=== PATIENT | female | born 1930 | race Caucasian/White ===

== ENCOUNTER 2017-03-28 07:20 | Inpatient (IN) | payer MEDICARE, OTHER ==
[~2017-03-28] VITALS: Ht 154.9 cm; Wt 73.9 kg
[~2017-03-28 07:20] MED LIST: ASPIRIN EC81 MG PO; AUGMENTIN 875-1 EACH PO; FUROSEMIDE40 MG PO; HARVONI 90-4001 EACH PO; LISINOPRIL20 MG PO; POTASSIUM CHLO20 ME1 PO; TRAZODONE HCL50 MG PO; VITAMIN D-32000 UNIT PO
--- NOTE | 2017-03-28 19:32 | EKG ---
[facility] [address] [place] [address] Signed Sinus bradycardia with premature atrial complexes Otherwise normal ECG No previous ECGs available Confirmed by SANDRA ALEXANDER MD ([id number]) on 03/28/2017 7:31:55 PM Electronically Signed By: SANDRA ALEXANDER MD 03/28/17 193 PATIENT NAME: KASSANDRA AVALOS VIET Electrocardiogram DATE OF : 30 PHYSICIAN: SANDRA ALEXANDER MD REPORT #: [id number] REPORT IS CONFIDENTIAL AND NOT TO BE RELEASED WITHOUT AUTHORIZATION
--- NOTE | 2017-03-29 07:51 | OR ---
[facility] [address], [place] [address] Signed DATE OF OPERATION: 03/28/2017 SURGEON: Margarita Manning MD PREOPERATIVE DIAGNOSIS: Right intertrochanteric hip fracture. POSTOPERATIVE DIAGNOSIS: Right intertrochanteric hip fracture. PROCEDURE PERFORMED: Open reduction and internal fixation, right hip. OFFICE ASST: ZENA Messer was present in critical positioning, retraction, and wound closure. ANESTHESIA: Spinal. BLOOD LOSS: 200 mL. IMPLANTS: Synthes 4-hole 135 DHS with a 95 mm lag screw and four 4.5 mm screws. BRIEF HISTORY: Abida is an 87-year-old female, who suffered a ground-level fall this morning. She landed on her hip, had an extreme pain, and was transported by EMS to the emergency department. Radiographs revealed a nondisplaced intertrochanteric hip fracture. Risks and benefits of operative treatment were discussed with her and she elected to proceed. DESCRIPTION OF PROCEDURE: She was seen by the hospitalist and medically cleared prior to surgery and was taken to the operating room, placed on the fracture table. After adequate anesthesia, par conference was obtained and she was placed in foot traction. Her left leg was flexed abducted and external rotated carefully. Leadbetter maneuver was performed. Image intensifier was brought in. Fracture was found to be completely nondisplaced. The hip was prepped and draped in a standard sterile fashion. A 4-inch incision was made Electronically Signed By: MARGARITA MANNING MD 03/29/17 0751 PATIENT NAME: ABIDA AVALOS OPERATIVE REPORT DATE OF : 30 PHYSICIAN: MARGARITA MANNING MD REPORT #: [id number] REPORT IS CONFIDENTIAL AND NOT TO BE RELEASED WITHOUT AUTHORIZATION [facility] [address], [place] [address] Signed laterally and carried through the skin and subcutaneous tissue. The IT band was divided longitudinally. The vastus lateralis was split and elevated bluntly and the pin guide for the DHS was then centered on the lateral femur and the pin was advanced from the lateral femur across the femoral neck into the femoral head. This was measured to a 95. The triple reamer was then placed over the pin and advanced until it was well seated under direct image intensifier guidance. The 95 lag screw was then placed until it was well seated in the femoral head. The plate was then placed over this and advanced until it was flat with the lateral femur. The 4 holes were then drilled and 4 screws were placed. The final radiograph showed well placed DHS and an anatomically reduced fracture with the exception of the lesser trochanter which was off. The wound was copiously irrigated with antibiotic solution, closed with #1 Stratafix for the IT band, 0 Stratafix for the subcutaneous tissue, and uvaldo for the skin. Wound was dressed with Mepilex Ag dressing and Opsite. She tolerated the procedure well. All sponge, needle, and instrument counts were correct. Margarita Manning MD BA/ABELINO /[id number] Electronically Signed By: MARGARITA MANNING MD 03/29/17 0751 PATIENT NAME: ABIDA AVALOS VIET OPERATIVE REPORT DATE OF : 30 PHYSICIAN: MARGARITA MANNING MD REPORT #: [id number] REPORT IS CONFIDENTIAL AND NOT TO BE RELEASED WITHOUT AUTHORIZATION
== END 2017-03-31 08:30 | disposition swing bed (61) | DRG 482 ==
LOC: ED 07:20 → MS 09:24
PROVIDERS: ADMIT Specialist
PROC: 0QS604Z Reposition Right Upper Femur with Internal Fixation Device, Open Approach (ICD-10-PCS; principal; 2017-03-28 11:15)
DX: S72.144A Nondisplaced intertrochanteric fracture of right femur, initial encounter for closed fracture (principal); R34 Anuria and oliguria; I10 Essential (primary) hypertension; R00.1 Bradycardia, unspecified; B18.2 Chronic viral hepatitis C; F51.04 Psychophysiologic insomnia; W18.30XA Fall on same level, unspecified, initial encounter; Y92.009 Unspecified place in unspecified non-institutional (private) residence as the place of occurrence of the external cause; Z79.82 Long term (current) use of aspirin; Z79.899 Other long term (current) drug therapy; Z88.5 Allergy status to narcotic agent
CPT/HCPCS: 01210; 36415; 71045; 73502; 80048; 80076; 81001; 83880; 85025; 85610; 85730; 93005; 93010; 94762; 97110; 97116; 97162; 97165; 97530; 97535; C1713; J0690; J0780; J1885; J2250; J2274; J2370; J2405; J2704; J3010; J7120

== ENCOUNTER 2017-03-31 08:30 | Inpatient (IN) | payer MEDICARE, OTHER ==
[~2017-03-31] VITALS: Ht 154.9 cm; Wt 73.9 kg
--- NOTE | 2017-03-31 12:08 | NUR ---
PT DOING WELL. IN CHAIR AWAKE. TOOK LUNCH TRAY. TOOK TO THE BR. CHANGED BEDDING.
--- NOTE | 2017-03-31 13:40 | NUR ---
PT GOT A BED BATH, SHE WAS TAKING OFF THE TELE MARKERS, NAD ALSO WANTED TO TAKE OFF THE TAPE AND COTTON BALL FROM THE LAB WHEN SHE DID THAT IT CAUSED A SKIN TEAR, I NOTIFIED GINA(HER NURSE), AND SHE PUT A PROTECTANT OVER IT AND THEN WE FINISHED UP HER BED BATH, I REFILLED HER WATER AND SHE SAID SHE WAS GONNA RELAX TO TAKE A NAP.
--- NOTE | 2017-03-31 18:46 | NUR ---
PT CHANGED TO SWING BED. PT TOLERATING PHYSICAL THERAPY WELL, USES WALKER. NEEDS CUEING AND REMINDING FOR MOVEMENT. VOIDING WELL ON BCS. CHANGES POSITION OFTEN BETWEEN CHAIR AND BED. C/O PAIN ONLY WITH MOVEMENT.
--- NOTE | 2017-03-31 19:39 | NUR ---
ASSESSMENT COMPLETE. PT ASSISTED OFF THE COMMODE BACK TO BED WITH x2 ASSIST USING FWW. PT C/O PAIN 08/26, NORCO GIVEN. SCHEDULED HS TRAZADONE GIVEN PER PT REQUEST. DRESSING TO RIGHT HIP, C/D/I, SCANT SHADOWING NOTED. PT DENIES ANY NUMBNESS/TINGLING, CMS INTACT. PT ON ROOM AIR, DENIES ANY SOB. SCD/MASON/HP/CRYO CUFF IN PLACE. CALL LIGHT WITHIN REACH. PT DENIES ANY FURTHER NEEDS AT THIS TIME. PT HAD LG VOID AND BM IN BEDSIDE COMMODE.
--- NOTE | 2017-03-31 20:49 | NUR ---
VITALS AND I&OS DONE AND CHARTED. PT STATES SHE NEEDS NOTHING ELSE AT THIS TIME. HER TEMP WAS 100.0 I LET HER RN JEY KNOW. HER BEDSIDE TABLE AND CALL LIGHT WITHIN REACH.
--- NOTE | 2017-03-31 21:59 | NUR ---
HELPED RN GET PT TO THE BEDSIDE COMMODE AND BACK TO BED WITH HER WALKER. GOT HER SCDS AND HEEL PROTECTORS PUT BACK ON. CRYO CUFF ON WELL. 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 GLASSES PUT AWAY IN HER CASE. LOWERED THE HEAD OF HER BED AND TURNED OUT HER LIGHT. PT NEEDS NOTHING MORE AT THIS TIME. CALL LIGHT AND BEDSIDE TABLE WITHIN REACH.
--- NOTE | 2017-03-31 22:16 | NUR ---
REASSESSED PT TEMP, NOW 98.4. PT STATES RIGHT LEG STILL "ACHES", STABILIZED RIGHT FOOT WITH ROLLED BLANKET FOR PROPER ALIGNMENT D/T FALLING OUTWARD SHE STATES IT CAUSES HER FOOT TO ACHE WORSE. STABILIZING WITH BLANKET, PT STATES IT HELPS WITH THE PAIN. CRYO CUFF REFILLED AND IN PLACE. PT DENIES ANY FURTHER NEEDS AT THIS TIME. CALL LIGHT WITHIN REACH.
--- NOTE | 2017-04-01 00:41 | NUR ---
PT C/O PAIN 6-09/25, 2 TABS NORCO GIVEN. REPOSITIONED PT IN BED. PILLOW LAID UP AGAINST LATERAL RIGHT LOWER EXTREMITY TO ASSIST IN PROPER ALIGNMENT. ICE PACK APPLIED TO RIGHT LOWER EXTREMITY. DRESSING TO RIGHT HIP CONTINUES TO BE UNCHANGED, C/D/I WITH SCANT OLD SHADOWING NOTED. CRYO CUFF/TEDS/SCD/HP IN PLACE. CALL LIGHT WITHIN REACH. PT DENIES ANY FURTHER NEEDS AT THIS TIME.
--- NOTE | 2017-04-01 02:15 | NUR ---
PT SLEEPING, RR EVEN AND UNLABORED. PT APPEARS COMFORTABLE AT THIS TIME. CALL LIGHT WITHIN REACH.
--- NOTE | 2017-04-01 04:19 | NUR ---
HELPED PT GO TO THE BEDSIDE COMMODE WITH RN PONCHO'S HELP. CHARTED OUTPUT. GOT HER BACK INTO BED, SCDS PUT BACK ON,CRYO CUFF ON AND HEEL PROTECTORS. PT NEEDS NOTHING ELSE AT THIS TIME. CALL LIGHT AND BEDSIDE TABLE WITHIN REACH.
--- NOTE | 2017-04-01 06:07 | NUR ---
HELPED PT TO THE BEDSIDE COMMODE WITH LORE KHANNA.
--- NOTE | 2017-04-01 06:34 | NUR ---
PT UP IN CHAIR. PT RATES PAIN 2-3/10, 2 TABS NORCO GIVEN. IV SALINE LOCKED. DRESSING UNCHANGED, C/D/I WITH SCANT AMOUNT OF SHADOWING NOTED. PT IN GOOD SPIRITS THIS AM. PT DENIES ANY FURTHER NEEDS AT THIS TIME. CALL LIGHT WITHIN REACH.
--- NOTE | 2017-04-01 07:35 | NUR ---
RECIEVED REPORT FROM LORE DAVEY. PT UP TO CHAIR, AWAKE AND ALERT. REPORTS GETTING UP TO USE BATHROOM MULTIPLE TIMES. REPORTS PAIN IN LOWER RIGHT LEG, RELIEVED BY ICE PACK AND PILLOW STABLEAZTION. NEEDS CUEING FOR TRANSFER TO CHAIR OR BSC.
--- NOTE | 2017-04-01 08:01 | NUR ---
PT WAS UP IN HER CHAIR EATING HER BREAKFAST, SHE REMEMERED ME FROM YESTERDAY, SHE SAID SHE WOULD CALL IF SHE NEEDED ANYTHING.
--- NOTE | 2017-04-01 11:55 | NUR ---
CALLED DR GE REGARDING SWOLLEN RIGHT KNEE BEING NOTABLY MORE SWOLLEN. PT REPORTS INCREASED PAIN AND "TIGHTNESS" IN KNEE. RN ADVISED DR GE WE ARE APPLYING ICE TO AREA. DR GE GAVE NEW TELEPHONE ORDERS OF DICLOFENAC 75MG BID AND 2 VIEW X-RAY OF RIGHT KNEE TO R/O FX FROM FALL. ORDERS READ BACK AND CONFIRMED.
--- NOTE | 2017-04-01 12:21 | NUR ---
pt is in bed, her knee is a bit swollen, nurse was notified and called she said she wasnt hungry for lunch.
--- NOTE | 2017-04-01 17:59 | NUR ---
PT REPORTED PAIN IN RIGHT KNEE, KNEE APPEARS MORE SWOLLEN AND FEELS "TIGHT". DR GE AWARE, ORDERED 2 VIEW X-RAY OF KNEE, NO FRACTURE. ALSO ADDED NSAID TO MAR. ICE PACKS APPLIED TO KNEE. PT REQUIRES CUING AND REMINDERS FOR TRANSFERS, TTWB ON RIGHT FOOT. LULA, MASON MURGUIA, CYRO CUFF IN PLACE.
--- NOTE | 2017-04-01 19:26 | NUR ---
OFF-GOING HOSPITALIST ADVISED THAT HOSPITALIST WAS CONSULTING WHILE PT WAS INPATIENT. ADVISED TO LET HOSPITALIST KNOW IF BP WENT ABOVE 140/80. BP WAS 153/63. ADVISED HOSPITALIST. TELEPHONE ORDER TO RESTART HOME LISINOPRIL 20ML/DAY TO START TONIGHT.
--- NOTE | 2017-04-01 19:30 | NUR ---
BEDSIDE REPORT RECEIVED FROM LORE FUENTES, PT LYING IN BED, RATES PAIN 3/10 IN RIGHT HIP. CRYO CUFF ON, ICE PACKS ON RIGHT KNEE, SIGNIFICANT SWELLING NOTED WHEN ASSESSED BILATERALLY. DRESSINGS ON RIGHT HIP CLEAN, DRY AND INTACT. PT HAS NO ADDITIONAL NEEDS, SCDS AND HEEL PROTECTORS ON. WILL CONTINUE TO MONITOR. CALL LIGHT IN REACH.
--- NOTE | 2017-04-01 21:25 | NUR ---
PT SITTING UP IN CHAIR, RATES PAIN AT REST 3/10 IN RIGHT HIP, STATES MORE PAIN WITH MOVEMENT, LORE CORRAL ADMINISTERED 1 PO PRN NORCO FOR PAIN. LORE HARDEN NOTED LARGE BRUISE POSTERIORLY ON RIGHT LEG, WRAPPING TO INNER THIGH. PLAN TO ASSESS AFTER PAIN MEDICATIONS IN EFFECT. PT HAS CRYO CUFF ON. PERSONAL BELONGINGS, WATER, CALL LIGHT IN REACH.
--- NOTE | 2017-04-01 21:41 | NUR ---
PATIENT ASSISTED TO THE [facility] [place] 2PA. PATIENT TOLERATES ACTIVITY WELL. IT WAS NOTICE THAT THE PATIENT HAS A LARGE BRUISE THAT RUNS FROM THE PATIENTS RIGHT INNER THIGH TO THE OUTSIDE OF HER THIGH. THE BRUISE ALSO RUNS FROM THE BACK OF HER KNEE UP TO THE BOTTOM OF HER BUTTOCK. THE BRUISE IS NOT WARM TO THE TOUCH. PATIENT DOES NOT COMPLAIN OF PAIN AT THE SITE OF THE BRUISE. PLACED CALL TO DR. GE WITH CONCERN OF THE BRUISE. NO NEW ORDERS AT THIS TIME. WILL CONTINUES TO MONITOR.
--- NOTE | 2017-04-01 21:44 | NUR ---
VITALS AND I&OS DONE AND CHARTED. PT IS SITTING IN HER CHAIR AND NEEDS NOTHING ELSE AT THIS TIME. BEDSIDE TABLE AND CALL LIGHT NEXT TO HER.
--- NOTE | 2017-04-01 23:15 | NUR ---
ASSISTED PT FROM BEDSIDE COMMODE TO BED. PT TOLERATED TRANSFER WELL WITH TWO PERSON ASSIST AND FWW. ASSESSMENT COMPLETE. PT HAS LARGE BRUISE IN BACK OF RIGHT UPPER LEG THAT WRAPS AROUND LEG. CSM INTACT BILATERALLY UPPER AND LOWER EXTREMITIES. SIGNIFICANT EDEMA NOTED IN RIGHT KNEE, ICE PACKS APPLIED. CRYO CUFF ON RIGHT HIP, SITE CLEAN DRY AND INTACT WITH SHADOWING OF SMALL AMOUNT OF DRY DRAINAGE ON MEPILEX. PT RATES PAIN 3/10 AT THIS TIME, PAIN REPORTED TOLERABLE. PTS LUNGS CLEAR THROUGHOUT ALL LOBES. PT IS ALERT AND ORIENTED X 3. DENIES NAUSEA. LIGHTS OFF IN ROOM, SCDS ON, HEEL PROTECTORS ON. CALL LIGHT IN REACH.
--- NOTE | 2017-04-01 23:37 | NUR ---
PT REPORTED HEEL PROTECTERS WERE TOO TIGHT. LEFT HEEL PROTECTORS IN PLACE BUT UNSTRAPPED THEM.
--- NOTE | 2017-04-02 00:21 | NUR ---
ANSWERED PT'S CALL LIGHT, PT COMPLAINING OF PAIN IN RIGHT LEG, FROM THIGH DOWN. ASSESSED LEG, PULSES EQUAL BILATERALLY DORSALIS PEDIS, FAINT, BOTH LEGS WARM, NO EXCESSIVE WARMTH NOTICED IN RIGHT LEG AT BRUISING. SENSATION INTACT BILATERALLY. ADMINISTERED PRN NORCO X 1 FOR PAIN, WILL CONTINUE TO MONITOR, PT HAS SCDS ON, CRYO CUFF, TWO ICE PACKS ON RIGHT KNEE, SWELLING ON RIGHT KNEE HAS IMPROVED. HEEL PROTECTORS ALSO IN PLACE. CALL LIGHT IN REACH, LIGHTS OFF IN ROOM.
--- NOTE | 2017-04-02 01:30 | NUR ---
ANSWERED CALL LIGHT, ASSISTED PT TO REPOSITION IN BED. ADMINISTERED PRN ORAL NORCO X 1 FOR 5-6/10 REPORTED PAIN. PT STATES SHE NOW FEELS COMFORTABLE. LIGHTS OFF IN ROOM, SCDS ON, HEEL PROTECTORS, CRYO CUFF ON HIP, ICE PACKS ON KNEE. PT HAS NO ADDITIONAL REQUESTS AT THIS TIME. CALL LIGHT IN REACH.
--- NOTE | 2017-04-02 02:34 | NUR ---
PT SLEEPING AT THIS TIME, EYES CLOSED, RR 14, SCDS, HEEL PROTECTORS, CRYO CUFF IN PLACE. WILL CONTINUE TO MONITOR, LIGHTS OFF IN ROOM, PT APPEARS COMFORTABLE, NOT SHIFTING IN BED.
--- NOTE | 2017-04-02 03:45 | NUR ---
ASSISTED PT BACK TO BED FROM [facility] WITH TIMUR BENTON. PT TOLERATED WELL WITH SBA AND FWW, TOE TOUCH ONLY. PT HAD 450 ML VOID, COMMODE EMPTIED. SCDS, HEEL PROTECTORS, CRYO CUFF ON PT AT THIS TIME. TIMUR JJY REFILLED CRYO CUFF ICE. PT STATES THAT SHE IS COMFORTABLE, PILLOW WEDGED BETWEEN LEGS FOR COMFORT, PT INSTRUCTED NOT TO CROSS LEGS. LEGS ELEVATED FOR EDEMA. PT GIVEN CALL LIGHT IN LAP, LIGHTS OFF IN ROOM.
--- NOTE | 2017-04-02 05:58 | NUR ---
ASSISTED PT TO CHAIR FROM BED, PT AMBULATED WELL WITH INSTRUCTION, FWW AND 2PA. PT STATES PAIN IS 3/10 IN RIGHT LEG/HIP. ADMINISTERED 2 PRN PO NORCO FOR PAIN CONTROL. PT SITTING UP IN CHAIR, PERSONAL SUPPLIES IN REACH, CLOTH GIVEN TO CLEAN GLASSES, HEARING AIDS IN REACH. PT ALSO GIVE CRACKERS TO EAT WITH NORCO ADMINISTRATION. PT HAS CRYO CUFF ON RIGHT HIP. NO ADDITIONAL REQUESTS AT THIS TIME, WILL CONTINUE TO MONITOR. CALL LIGHT IN REACH.
--- NOTE | 2017-04-02 06:18 | NUR ---
I&OS DONE AND CHARTED. GOT HER FRESH ICE WATER AND CHECKED THE ICE IN HER CRYO CUFF, IT WAS FULL. PT NEEDS NOTHING MORE AT THIS TIME. BEDSIDE TABLE AND CALL LIGHT IN REACH.
--- NOTE | 2017-04-02 06:49 | NUR ---
PT IN BED FOR MOST OF SHIFT, SLEEPING FOR MOST OF NIGHT. PT REQUIRING ASSISTANCE WITH REPOSITIONING IN BED FOR COMFORT WITH HIP. PT HAS RECEIVED PRN NORCO AVAILABLE FOR PAIN WELL SCHEDULED PAIN MEDICATION. CRYO CUFF REFILLED THROUGHOUT SHIFT AND ON RIGHT HIP, ICE PACKS TO RIGHT KNEE FOR SWELLING, HEEL PROTECTORS AND SCDS ON THROUGHOUT SHIFT. PT COOPERATIVE, ALERT AND ORIENTED. HAS USED BSC WITH FWW AND 2PA.
--- NOTE | 2017-04-02 06:54 | NUR ---
PT WANTED TO BRUSH HER TEETH NOW AND AFTER BREAKFAST. I GOT ALL THE STUFF READY FOR HER TO BRUSH, PUT IT ALL AWAY AFTER SHE WAS ALL DONE. PT NEEDS NOTHING ELSE AT THIS TIME. CALL LIGHT AND BEDSIDE TABLE WITHIN REACH.
--- NOTE | 2017-04-02 07:03 | NUR ---
RECIEVED BEDSIDE REPORT FROM LORE VASQUEZ. PT AWAKE AND ALERT, UP TO CHAIR. PT REPORTS PAIN ONLY WITH MOVEMENT. RN REPORTS A BRUISE BEHIND THIGH, MD AWARE.
--- NOTE | 2017-04-02 07:45 | NUR ---
PATIENT STATES THAT SHE'S NAUSEATED. RN NOTIFIED AND BROUGHT IN MED. PATIENT SITTNG UP IN CHAIR EATING BREAKFAST. HANDS AND FACE WASHED. LINENS CHANGED. TALKED TO PATIENT ABOUT A SHOWER. LATER THIS AM. CALL BUTTON IN REACH. CRYO ON. NO OTHER NEEDS AT THIS TIME.
--- NOTE | 2017-04-02 08:08 | NUR ---
PT REPORTS R KNEE HAS NO PAIN AT THIS TIME. CYROCUFF IN PLACE ON RIGHT HIP. BRUISE FROM RIGHT UPPER LEG POSTERILY AROUND TO FRONT OF THIGH. MASON HOSE IN PLACE. SCD WHEN IN BED. PT REPORTS NAUSEA IS RELIEVED BY PO ZOFRAN, EATING BREAKFAST "SLOWLY". NO VOMITING.
--- NOTE | 2017-04-02 09:53 | NUR ---
PT TRANSFERED TO [facility]. VOIDED 250. TRANSFERED BACK TO CHAIR. ALL BELONGINGS IN REACH, COVERED WITH WARM BLANKET. CYRO CUFF IN PLACE, FEET ELEVATED, MASON HOSE ON. PT REPORTS NO PAIN IN HIP OR KNEE.
--- NOTE | 2017-04-02 11:06 | NUR ---
PATIENT SITTING UP IN CHAIR. FRESH ICE WATER GIVEN. THIS AIR CONDITIONING TECHNICIAN ENCOURAGED PATIENT TO DRINK MORE FLUIDS. ICE IN CRYO. WARM BLANKET GIVEN. CALL BUTTON IN REACH. NO OTHER NEEDS AT THIS TIME.
--- NOTE | 2017-04-02 11:26 | NUR ---
DR GE VERBAL ORDER OK TO LEAVE IV OUT.
--- NOTE | 2017-04-02 11:43 | NUR ---
RN CALLED DR COOPER TO ADVISE OF PT CONTINUING TO C/O PAIN AND DIZZINESS. DR COOPER IS AWARE OF CONTINUED ISSUES, TELEPHONE ORDER TO USE VISTARIL FOR ANXIETY, 50 MG Q6PRN INSOMINIA OR ANXIETY.
--- NOTE | 2017-04-02 12:50 | NUR ---
PATIENT RESTING IN CHAIR WITH FEET UP. NO OTHER NEEDS AT THIS TIME.
--- NOTE | 2017-04-02 13:17 | NUR ---
PT SITTING UP EATING LUNCH-A LITTLE EARLY. SHE SEEMS TO HAVE A GOOD ATTITUDE, NOT REALLY ENJOYING P.T., BUT KNOWS THE BENEFIT. HER DAUGHTER WAS BY TO VISIT, HAD PRAYER WITH PT. WILL FOLLOW NEEDED
--- NOTE | 2017-04-02 13:27 | NUR ---
VISITORS AT BEDSIDE. PT HAS BEEN WORKING WITH PHYSICAL THERAPY. EATING WELL.
--- NOTE | 2017-04-02 14:15 | NUR ---
PATIENT WORKING WITH PT.
--- NOTE | 2017-04-02 16:01 | NUR ---
TRANSFERED PT TO CHAIR, 1 PA W FWW. PT DID WELL, NEEDS LESS CUING. PERSONAL BELONGINGS IN REACH. CYROCUFF IN PLACE. PT STATES NO PAIN UNLESS MOVING. BRUISE ON UPPER R LEG APEARS TO BE SPREADING. PURPLE AREA IS OUTLINED.
--- NOTE | 2017-04-02 16:52 | NUR ---
PATIENT SITTING UP IN CHAIR WATCHING TV. PATIENT REFUSED SHOWER. NO OTHER NEEDS AT THIS TIME. ENCOURAGED PATIENT TO DRINK MORE FLUIDS. CALL BUTTON IN REACH. CRYO ON.
--- NOTE | 2017-04-02 17:31 | NUR ---
PT REPORTS LESS PAIN WITH MOVEMENT. RIGHT KNEE IS STILL SWOLLEN. LARGE BRUISE ON RIGHT UPPER LEG IS INCREASING IN SIZE, PURPLE AREA IS OUTLINED. DRESSING ON RIGHT HIP IS C/D/I. PT TTWB ON RIGHT FOOT. SHE IS DOING BETTER WITH TRANSFERS, REQUIRING LESS CUING AND REMINDERS. PT IS VERY COOPERATIVE WITH PHYISCAL THERAPY EXERCISES, DOES THEM ON HER OWN IN ROOM. SCD IN PLACE, MASON HOSE ON, CYRO CUFF ON. ICE PACKS ON KNEE NEEDED.
--- NOTE | 2017-04-02 19:38 | NUR ---
PT UP IN CHAIR, DRESSING INTACT R HIP, BRUISING AREA SHADOWING MARKED, EDEMA R TORI, ICE TO AREA. NO C/O NEEDING PAIN MEDS AT THIS TIME
--- NOTE | 2017-04-02 20:12 | NUR ---
PATIENT'S CRYO CUFF REFILLED AND APPLIED ON RIGHT SIDE HIP/THIGH AREA. 2 ICE PACKS ON RIGHT KNEE PER PATIENT'S REQUEST.
--- NOTE | 2017-04-02 21:22 | NUR ---
ASSISTED 1 PERSON WITH WALKER TO THE COMMODE AND BACK TO BED. CRYO AND SCDS BACK ON. 2 ICE PACKS ON RT KNEE. RN LAKE NOTIFIED FOR PATIENT ASKING PAIN MEDS.
--- NOTE | 2017-04-02 21:31 | NUR ---
MEDICATED WITH 2 NORCO C/O 11/26 R HIP/LEG AND KNEE PAIN, MASON MURGUIA, SCDS, HEEL PROTECTORS IN PLSVR
--- NOTE | 2017-04-02 22:39 | NUR ---
PATIENT CALLED, PATIENT WAS SITTING ON THE COMMODE. PER PATIENT, WANTED TO BE UP IN THE CHAIR STATED "BETTER THAN ON THE BED". CRYO CUFF BACK ON, LEGS UP, 2 ICE PACKS ON RT KNEE. CALL LIGHT WITHIN REACH. LORE BETHEA NOTIFIED RE PATIENT UP IN THE CHAIR.
--- NOTE | 2017-04-03 02:37 | NUR ---
PT HAD BEEN RESTING IN CHAIR, LEGS ELEVATED. STARTED SHOUTING "HELP ME, HELP ME". PT HAD SCOOTED DOWN IN CHAIR AND HER BUTTOCKS WERE RESTING ON EDGE OF RECLINED FOOT REST. PT HELPED UP WITH 3 PEOPLE ASSIST AND FWW. TOOK SEVERAL CUES TO REORIENTS, WAS CONFUSED TO PLACE AND DATE, REORIENTED SELF VERY QUICKLY WITH ONE CUE. PT UP TO [facility], VOIDED YELLOW URINE WITH A PINK HUE, QS. BACK TO BED WITH ONE ASSIST AND FWW, TOLERATED WELL. DRESSING R HIP CDI WITH OLD SHADOWING, BRUISED RIGHT LEG FROM BELOW BUTTOCKS DOWN TO KNEE AREA, WITH NEW SHADOWING OUTSIDE OF EDGES MARKED YESTERDAY BY AM SHIFT. NEW SAHDOWING MARKED. EDEMA R LEG STILL PRESENT, ICE TO AREA, [facility], SCDS, HEEL PROTECTORS IN PLACE. BED ALARM PLACED IN CHAIR, BED ALARM IN BED ON. FALL SAFETY PROCEDURE EXPLAINED TO PT, STATED UNDERSTANDING PROTECTORS IN PLACE. PT MEDICATED AT THIS TIME WITH ONE NORCO 7.5 PER C/O R
--- NOTE | 2017-04-03 03:45 | NUR ---
PATIENT CALLED TO USE THE COMMODE. 1 PERSON ASSIST WITH WALKER. PATIENT IS BACK IN BED, CRYO CUFF, SCDS BACK ON. CALL BUTTON WITHIN REACH.
--- NOTE | 2017-04-03 04:09 | NUR ---
medicated with zofran 4mg po c/o upset stomach,
--- NOTE | 2017-04-03 05:22 | NUR ---
Pt r hip dressing in place with old shadowing, intact. bruising around right leg with edges marked, spreading, , area soft, tender, not red, edematous, firm to touch. cryocuff to area. R knee edematous, pt able to slightly bend r knee. Ice to knee. tedhose, scds, heel protectors in place. good cms. Pt up to bsc x5, voiding qs urine. tolerating liquids w/o problesm, medicated x1 with zofran per c/o upset stomach, Medicated with [facility] 7.5mg x2 per c/o r leg pain. Pt up to reclined chair where she slept for 2 hours, woke up confused to place and time, reoriented easily. Has required one person assist, pivot transfering and fww. Has tolerated well. Pt continues on swing bed status. MD to reassess R leg enlarging bruising area and knee edema.
--- NOTE | 2017-04-03 10:00 | NUR ---
PATIENT UP WORKING WITH PHYSICAL THERAPY IN ROOM. BRUISING TO LEG NOT CHANGED. PATIENT STATES " I AM WORRIED ABOUT THIS SWELLING AND BRUISING?"
--- NOTE | 2017-04-03 10:23 | NUR ---
PT SITTING IN CHAIR-ALERT AND ORIENTED. SAID SHE THINKS P.T. IS COMING IN SOON AND SEMS READY. BEGAN TO VISIT WITH PT ABOUT HOW SHE IS COPING, SHE IS A VERY ACTIVE PERSON. HER DAUGHTER CAME IN JUST WE BEGAN, WILL LET HER VISIT WITH HER FAMILY AND WILL RETURN LATER
--- NOTE | 2017-04-03 11:30 | NUR ---
PATIENT SITTING UP IN CHAIR. ICE IN CRYO. ICE PACKS ON KNEE. PATIENT SET UP WITH LUNCH. FRESH ICE WATER GIVEN. NO OTHER NEEDS AT THIS TIME.
--- NOTE | 2017-04-03 14:00 | NUR ---
PATIENT UP TO RECLINER, TOLERATING ACTIVITY WELL. NO COMPLAINTS OF PAIN AT THIS TIME. ICE TO LEG. PATIENT VISITING WITH FAMILY.
--- NOTE | 2017-04-03 15:30 | NUR ---
PATIENT REFUSED SHOWER. AGREED TO TAKE ONE IN THE AM. PATIENT UP TO BATHROOM WITH ONE PERSON ASSIST WITH FWW.
--- NOTE | 2017-04-03 18:42 | NUR ---
BRUISE TO INNER THIGH APPEARS SLIGHTLY IMPROVED, DOES NOT APPEAR TO BE SPREADING OUTWARD FURTHER. PAIN WELL CONTROLLED WITH NORCO, PATIENT WORKED WITH PHYISCAL THERAPY TODAY AMBULATING 50 FT.
--- NOTE | 2017-04-03 21:43 | NUR ---
PATIENT RESTING IN BED, BREATHING IS EVEN AND UNLABORED. SHE STATES "PAIN IS OKAY WHEN I AM NOT MOVING AROUND." ASSISTED PATIENT TO COMODE. PATIENT TOLERATING AMBULATION, HOWEVER SHE DOES EXPERIENCE PAIN WITH MOVEMENT, REQUIRES ENCOURAGEMENT WHEN AMBULATING. ASSISTED PATIENT TO BED, NOW RESTING COMFORTABLY. REPORTS 7/10 PAIN IN RIGHT HIP. APPLIED CRYOCUFF TO RIGHT HIP, ICE TO RIGHT KNEE. DENIES FURTHER NEEDS AT THIS TIME. ASSESSMENT DONE. CALL LIGHT WITHIN REACH. ALL ORDERS IN PLACE.
--- NOTE | 2017-04-03 22:16 | NUR ---
ADMINISTERED PRN NORCO DUE TO 7/10 PAIN IN RIGHT HIP. NO OTHER NEEDS AT THIS TIME. CALL LIGHT WITHIN REACH.
--- NOTE | 2017-04-04 00:39 | NUR ---
PATIENT RESTING COMFORTABLY IN BED, BREATHING IS EVEN AND UNLABORED. TIMUR PAIGE ASSISTED PATIENT TO [facility]. PATIENT REPORTS 3/10 PAIN IN RIGHT HIP AFTER AMBULATION. EDUCATED PATIENT ABOUT PAIN ASSOCIATED WITH AMBULATION. WILL MONITOR PAIN CONTROL CLOSELY. DENIES NEEDS AT THIS TIME. CALL LIGHT WITHIN REACH.
--- NOTE | 2017-04-04 01:01 | NUR ---
ASSISTED PATIENT TO USE THE COMMODE AND BACK TO BED.CRYO CUFF, SCDS AND HEEL PROTECTOR BACK ON. CALL BUTTON WITHIN REACH.
--- NOTE | 2017-04-04 03:17 | NUR ---
PATIENT RESTING COMFORTABLY IN BED, BREATHING IS EVEN AND UNLABORED. FLACC SCORE OF 0. CALL LIGHT WITHIN REACH.
--- NOTE | 2017-04-04 04:19 | NUR ---
PATIENT RESTING COMFORTABLY IN BED, BREATHING IS EVEN AND UNLABORED. FLACC SCORE OF 0. CALL LIGHT WITHIN REACH.
--- NOTE | 2017-04-04 05:55 | NUR ---
PATIENT'S NIGHT WAS UNEVENTFUL. SHE HAS BEEN RESTING OFF AND ON THROUGHOUT SHIFT. VSS, URINE OUTPUT QS. DRESSING TO RIGHT HIP REMAINS C/D/I, CMS INTACT. BRUISE HAS NOT NOT GOTTEN WORSE THIS SHIFT. PAIN HAS BEEN WELL CONTROLLED. NO ACUTE CHANGES.
--- NOTE | 2017-04-04 06:00 | NUR ---
PATIENT RESTING COMFORTABLY IN BED, BREATHING IS EVEN AND UNLABORED. DENIES NEEDS AT THIS TIME. CALL LIGHT WITHIN REACH, BED ALARM ON.
--- NOTE | 2017-04-04 07:56 | NUR ---
PATIENT 1 PERSON ASSIST UP TO THE CHAIR WITH HER FWW, SHE REMAINS AT A TOE TOUCH ONLY. DRESSING TO THE RIGHT HIP CDI WITH MEPILEX AND OPSITE. CMS INTACT. PATIENT IS ALERT AND OREINTED AT THIS TIME. VITALS TAKEN AND AM MEDICATION GIVEN.
--- NOTE | 2017-04-04 09:46 | NUR ---
PATIENT GIVEN 2 NORCO PO AT THIS TIME FOR C/O 5/10 RIGHT HIP PAIN WITH EXERCISES. PATIENT WATER FILLED UP FOR HER AT THIS TIME. SHE REMAINS UP IN THE CHAIR AND IS TOLERATING ACTIVITY WELL.
--- NOTE | 2017-04-04 10:39 | NUR ---
PATIENT WORKING WITH PHYSICAL THERAPY.
--- NOTE | 2017-04-04 12:12 | NUR ---
PATIENT REPORTS NO PAIN AT THIS TIME, SHE ATE 100% OF HER LUNCH AND DENIES OTHER NEEDS AT THIS TIME.
--- NOTE | 2017-04-04 13:39 | NUR ---
PATIENT SITTING UP IN THE CHAIR WITH CRYO CUFF ON, CALL LIGHT WITHIN REACH AND TRAY TABLE AT THE SIDE OF THE CHAIR. PAIN AT THIS TIME IS AT A 2/10 WHICH IS TOLERABLE FOR THE PATIENT. NEW ICE PACKS APPLIED TO THE LEFT KNEE DUE TO EDEMA. PATIENT HAS NO OTHER NEEDS AT THIS TIME
--- NOTE | 2017-04-04 15:51 | NUR ---
CRYO CUFF FILLED WITH ICE AT THIS TIME. PATIENT'S PAIN CURRENTLY AT THIS TIME AT A /
--- NOTE | 2017-04-04 16:58 | NUR ---
PATIENT UP WORKING WITH PHYSICAL THERAPY AT THIS TIME.
--- NOTE | 2017-04-04 16:59 | NUR ---
PATIENT HAS BEEN UP IN HER CHAIR MOST OF THE DAY. SHE IS A 1 PERSON TRANSFER THAT IS TOE TOUCH WITH HER FRONT WHEEL WALKER. HER PAIN IS WELL CONTROLLED WITH 2 NORCO PO. HER DRESSING TO THE RIGHT LEG IS CDI WITH MEPILEX AND AN OPSITE. SHE HAS SIGNIFICANT BRUISING TO HER RIGHT LEG THAT HAS BEEN OUTLINED WITH A MARKER. CRYOCUFF AND ICE PACKS HAVE BEEN APPLIED TO THE RIGHT KNEE AND RIGHT HIP.
--- NOTE | 2017-04-04 17:15 | NUR ---
RECIEVED REPORT FROM LORE CHAUHAN. PT UP IN ROOM WITH PHYSICAL THERAPIST, NOEL. IS NOW SITTING UP IN RECLINER. RATED PAIN TO RIGHT KNEE 5/10 WHEN UP, DENIED NEED FOR PAIN MEDICATION. ALERT, ORIENTED X 4.
--- NOTE | 2017-04-04 19:00 | NUR ---
RECEIVED REPORT FROM RN. PATIENT RESTING COMFORTABLY IN CHAIR, BREATHING IS EVEN AND UNLABORED. STATES "MY PAIN IS OKAY WHEN I'M NOT MOVING." DENIES NEEDS AT THIS TIME. CALL LIGHT WITHIN REACH.
--- NOTE | 2017-04-04 20:43 | NUR ---
VITALS AND I&OS DONE AND CHARTED. PT NEEDS NOTHING ELSE AT THIS TIME. BEDSIDE TABLE AND CALL LIGHT WITHIN REACH,
--- NOTE | 2017-04-04 21:01 | NUR ---
PATIENT RESTING COMFORTABLY IN CHAIR, BREATHING IS EVEN AND UNLABORED. STATES "I AM NOT QUITE READY FOR BED YET. I WILL TAKEN MY MEDICATIONS IN ABOUT AN HOUR IF THAT IS OKAY." WILL ADMINISTER MEDICATIONS WHEN PATIENT RETURNS TO BED. DENIES NEEDS AT THIS TIME. ASSESSMENT DONE. CALL HANDY SANCHEZ.
--- NOTE | 2017-04-04 21:50 | NUR ---
ASSISTED PATIENT TO COMODE FROM CHAIR. TOLERATING AMBULATION, REQUIRES FREQUENT DIRECTION AND ENCOURAGEMENT. NOW RESTING IN BED COMFORTABLY, BREATHING IS EVEN AND UNLABORED. REPORTS 5/10 PAIN IN RIGHT LEG. REFILLED CRYOCUFF, APPLIED ICE TO RIGHT KNEE. DENIES FURTHER NEEDS AT THIS TIME. CALL LIGHT WITHIN REACH.
--- NOTE | 2017-04-04 22:21 | NUR ---
GAVE PATIENT PRN KATHARINACO AND SCHEDULED DICLOFENAC. DENIES FURTHER NEEDS. CALL LIGHT WITHIN REACH.
--- NOTE | 2017-04-05 00:54 | NUR ---
PATIENT RESTING COMFORTABLY IN BED, BREATHING IS EVEN AND UNLABORED. FLACC SCORE OF 0. CALL LIGHT WITHIN REACH.
--- NOTE | 2017-04-05 02:45 | NUR ---
LORE DELANEY ASSISTED PATIENT TO BATHROOM.
--- NOTE | 2017-04-05 03:26 | NUR ---
PATIENT RESTING COMFORTABLY IN BED, BREATING IS EVEN AND UNLABORED. REPORTS 2/10 PAIN AND STATES "I FEEL GOOD RIGHT NOW." REFILLED CRYOCUFF. CALL LIGHT WITHIN REACH.
--- NOTE | 2017-04-05 04:39 | NUR ---
PATIENT'S NIGHT WAS UNEVENTFUL. SHE HAS BEEN RESTING COMFORTABLY IN BED THROUGHOUT SHIFT. VSS, URINE OUTPUT QS. PAIN HAS BEEN WELL CONTROLLED. PATIENT HAS BEEN ALERT AND ORIENTED X4. CONTINUES TO HAVE IRREGULAR HEART RHYTHM. NO IMPROVEMENT IN EDEMA IN BLE. LUNGS ARE CLEAR, 02 SATURATION >90% ON ROOM AIR. CONTINUES TO REQUIRE 1PA WITH WALKER DURING AMBULATION AND FREQUENT ENCOURAGEMENT WHILE AMBULATING. NO ACUTE CHANGES FROM BEGINNING OF SHIFT.
--- NOTE | 2017-04-05 04:39 | NUR ---
PATIENT RESTING COMFORTABLY IN BED, BREATHING IS EVEN AND UNLABORED. FLACC SCORE OF 0. CALL LIGHT WITHIN REACH.
--- NOTE | 2017-04-05 06:15 | NUR ---
PATIENT RESTING COMFORTABLY IN CHAIR. DENIES NEEDS AT THIS TIME. STATES "PAIN IS GOOD WHEN I'M JUST SITTING HERE. I DON'T NEED ANYTHING." CALL LIGHT WITHIN REACH.
--- NOTE | 2017-04-05 09:27 | NUR ---
PT IS SITTING UP IN CHAIR SAFELY WITH CALL LIGHT IN REACH. PT WAS BRUSHED TEETH AND WASHED FACE/HANDS WITH WARM WASH CLOTH. PT WAS OFFERED A SHOWER, PT SAID SHE WOULD LIKE TO WAIT UNTIL AFTER PHYSICAL THERAPY WORKS WITH HER. PT ASKED FOR MORE ICE WATER
--- NOTE | 2017-04-05 10:14 | NUR ---
PATIENT UP WALKING IN THE HALLWAY WITH PHYSICAL THERAPIS. IN PT ROOM AT THIS TIME. PATIENT WAS MEDICATED FOR PAIN PRIOR TO PHYSICAL THERAPIST.
--- NOTE | 2017-04-05 12:29 | NUR ---
OCCUPATIONAL THERAPIST WAS IN ROOM WORKING WITH PATIENT ON ADL TASK. PATIENT IS RESTING IN THE CHAIR EATING LUNCH. NO APPARENT DISTRESS
--- NOTE | 2017-04-05 13:30 | NUR ---
PATIENT RESTING IN THE CHAIR REPORT 3/10 PAIN ON THE RIGHT HIP. PAIN DENIES THE NEED FOR PAIN MEDS AT THIS TIME. CALL LIGHT AND PERSONAL BELONGING IN REACH.
--- NOTE | 2017-04-05 14:50 | NUR ---
PT IS SITTING UP IN CHAIR WITH CALL LIGHT IN REACH. PT IS WORKING ON HER LAPTOP AND DOES NOT NEED ANYTHING AT THE MOMENT
--- NOTE | 2017-04-05 17:07 | NUR ---
PATIENT IS IN PT AT THIS TIME.
--- NOTE | 2017-04-05 17:40 | NUR ---
PATIENT RESTING IN THE CHAIR EATING DINNER. SHE JUST FINISHED PHYSICAL THERAPY. DENIES THE NEED FOR PAIN MEDS AT THIS TIME. MAK WAS MEDICATED BEFORE PT.
--- NOTE | 2017-04-05 18:13 | NUR ---
PATIENT HAD DONE WELL TODAY. HAD PHYSICAL THERAPY TWICE. PAIN CONTROL WITH PRN NORCO. VOIDED Q/S. 2+ EDEMA IN THE LOWER EXTREMITIES. BRUISE ON THE RIGHT UPPER THIGH, AND IT IS MARKED. MD AWARE. LASIX TO START TOMORROW.
--- NOTE | 2017-04-05 18:43 | NUR ---
PT IS SITTING UP IN CHAIR TALKING ON HER PHONE. PT DID NOT NEED ANYTHING AT THE MOMENT
--- NOTE | 2017-04-05 19:00 | NUR ---
BEDSIDE REPORT RECEIVED FROM LORE MORALES. PT IS SITTING UP IN CHAIR, RATES PAIN 3/10 IN RIGHT HIP. CRYO CUFF ON RIGHT HIP. PERSONAL SUPPLIES AND CALL LIGHT IN REACH, NO ADDITIONAL REQUESTS AT THIS TIME.
--- NOTE | 2017-04-05 19:57 | NUR ---
BEDSIDE REPORT RECEIVED FROM LORE MORALES, PT SITTING UP IN CHAIR, ON 3L OXYGEN, SPO2 94%. QUEV[place]O DRAINING. IV SALINE LOCKED. PT REQUESTING TO GET INTO BED, KENNETH MURRY IN ROOM TO ASSIST PT TO TRANSFER WITH FWW.
--- NOTE | 2017-04-05 21:07 | NUR ---
PT ASSESSMENT COMPLETE. PT RATES PAIN 4/10 IN RIGHT LEG, STATES, "MOSTLY UNCOMFORTABLE DUE TO SWELLING". ELEVATED LEGS BILATERALLY IN CHAIR, ICE APPLIED TO KNEES, FEET, DUE TO SIGNIFICANT 3+ EDEMA BILATERALLY FEET AND KNEES, PULSES STRONG BILATERALLY UPPER AND LOWER EXTREMITIES. CRYO CUFF ON RIGHT HIP, MEPILEX COVERING SURGICAL SITE, NO NEW DRAINAGE NOTED, DRESSING INTACT. DEEP RED BRUISING NOTED POSTERIOR RIGHT UPPER LEG, INNER THIGH. LUNGS CLEAR THROUGHOUT ALL LOBES, BOWEL TONES ACTIVE. PT DENIES NAUSEA. ASSISTED PT TO BSC WITH SBA AND FWW FOR VOID. PT BACK IN CHAIR, LEGS ELEVATED. ADMINISTERED 1 PRN PO NORCO, SCHEDULED MEDICATIONS. PT GIVEN ICE WATER, PERSONAL SUPPLIES AND CALL LIGHT IN REACH.
--- NOTE | 2017-04-05 22:49 | NUR ---
ASSISTED PT TO BED SIDE COMMODE WITH FWW AND SBA. PT STATES PAIN IS 4-5/10, ADMINISTERED PRN NORCO X 1. PT NOW BACK TO BED, SCDS, HEEL PROTECTORS, CRYO CUFF ON, AND ICE ON RIGHT KNEE. PT'S HIPS WITH PILLOW FOR COMFORT. PT GIVEN TRAY TABLE WITH PERSONAL SUPPLIES, ICE WATER, NO ADDITIONAL REQUESTS AT THIS TIME, LIGHTS OFF IN ROOM. CALL LIGHT IN REACH.
--- NOTE | 2017-04-06 00:50 | NUR ---
PT SLEEPING, EYES CLOSED, RR 16, LIGHTS OFF IN ROOM, SCDS ON.
--- NOTE | 2017-04-06 01:22 | NUR ---
IN PT ROOM, TIMUR JUNE ASSISTED PT BACK TO BED AFTER USING BSC, JUNE ALSO REPLACING ICE PACKS, CRYO CUFF ICE. PT STATES PAIN 3/10, "MORE WITH MOVING", ADMINISTERED PRN NORCO X 1. ASSISTED PT TO REPOSITION IN BED. LIGHTS OFF, CALL LIGHT IN REACH, SCDS, HEEL PROTECTORS, CRYO CUFF ON.
--- NOTE | 2017-04-06 01:24 | NUR ---
HELPED PT GET TO HER BEDSIDE COMMODE WITH HER WALKER. BACK TO BED WELL WITH HER WALKER. SCDS PUT BACK ON AND TURNED ON, CRYO CUFF POSITIONED ON HER HIP. CHECKED THE ICE , IT WAS GOOD. GOT HER TWO ICE PACKS FOR HER KNEE. PT NEEDS NOTHING ELSE AT THIS TIME. BEDSIDE TABLE AND CALL LIGHT WITHIN REACH.
--- NOTE | 2017-04-06 03:18 | NUR ---
ANSWERED CALL LIGHT, ASSISTED PT FROM BED TO BSC WITH FWW AND MINIMAL ASSIST FOR VOID. PT BACK TO BED, SCDS, HEEL PROTECTORS, CRYO CUFF ON. ICE PACKS ON FEET. PT HAS PERSONAL SUPPLIES AND CALL LIGHT IN REACH.
--- NOTE | 2017-04-06 04:32 | NUR ---
ANSWERED CALL LIGHT, ASSISTED PT FROM BED TO CHAIR, PT STATES SHES READY TO BE AWAKE FOR THE DAY. PT AMBULATED WITH FWW AND MINIMAL SBA. PT STATES PAIN 5/10 IN RIGHT LEG/HIP. ADMINISTERED 1 PRN PO NORCO. PT SITTING IN CHAIR, CRYO CUFF ON RIGHT HIP. PT GIVEN HEARING AIDS, ORANGE JUICE AND CRACKERS. NO ADDITIONAL REQUESTS AT THIS TIME, CALL LIGHT AND PERSONAL SUPPLIES IN REACH.
--- NOTE | 2017-04-06 05:29 | NUR ---
PT I&OS DONE AND CHARTED. GARBAGES EMPTIED, CRYO FILLED WITH ICE AND ROOM PICKED UP. FRESH ICE WATER ALSO. PT NEEDS NOTHING AT THIS TIME. BEDSIDE TABLE AND CALL LIGHT WITHIN REACH.
--- NOTE | 2017-04-06 06:10 | NUR ---
PT TRANSFERRING FROM BED TO BSC FOR VOIDS WITH FWW AND MINIMAL SBA. PT USES CALL LIGHT APPROPRIATELY, ALERT AND ORIENTED. UP TO CHAIR THIS MORNING, CONTINUES TO RECEIVE PO NORCO FOR PAIN. ICE APPLIED TO RIGHT HIP WITH CRYO CUFF THROUGHOUT SHIFT, ICE ROTATED ON RIGHT KNEE, BILATERALLY FEET FOR 3+ EDEMA, LEGS ELEVATED ABLE. NO IV ACCESS.
--- NOTE | 2017-04-06 06:46 | NUR ---
PT SITTING UP IN CHAIR, SLEEPING, EYES CLOSED, BREATHING NON-LABORED, CALL LIGHT IN REACH.
--- NOTE | 2017-04-06 07:59 | NUR ---
PATIENT ASSISTED UP TO THE COMMODE WITH FWW. PATIENT VOIDED 300 MLS AND TOLERATED [place] VERY WELL WITH 1 PERSON ASSIST. PATIENT BACK TO THE CHAIR FOR BREAKFAST.
--- NOTE | 2017-04-06 08:02 | NUR ---
PT IS SITTING UP IN CHAIR EATING BREAKFAST AND TALKING ON HER PERSONAL CELL PHONE.
--- NOTE | 2017-04-06 08:56 | NUR ---
PATIENT REMAINS UP IN THE CHAIR, PATIENT IS ALERT AND ORIENTED AT THIS TIME AND RATES PAIN AT A 3/10. PATIENT WOULD LIKE PAIN MEDICATION 30 MINUTES BEFORE WORKING WITH PHYSICAL THERAPY AT 1030. AM MEDICATION GIVEN AT THIS TIME.
--- NOTE | 2017-04-06 09:38 | NUR ---
PT IS SITTING UP IN THE CHAIR WAITINGFOR PHYSICAL THERAPY TO COME WORK WITH HER. PT ASKED FOR A BLANKET.
--- NOTE | 2017-04-06 10:18 | NUR ---
PATIENT REQUESTED PAIN MEDICATION AT THIS TIME FOR WORKING WITH PHYSICAL THERAPY. PATIENTS CURRENT PAIN LEVEL IS AT A 3/10 IN THE RIGHT LEG.
--- NOTE | 2017-04-06 10:55 | NUR ---
PATIENT UP AMBULATING WITH PHYSICAL THERAPY.
--- NOTE | 2017-04-06 13:42 | NUR ---
PATIENT SITTING UP IN THE CHAIR WORKING ON THE COMPUTER WITH HER DAUGHTER. SHE HAS NO C/O PAIN AT THIS TIME AND DENIES OTHER NEEDS.
--- NOTE | 2017-04-06 14:39 | NUR ---
PATIENT UP TO THE SHOWER WITH OCCUPATIONAL THERAPY. DOCTOR GE CALLED AND DRESSING TO RIGHT HIP CHANGED. LYNN CDI TO HIP, NEW MEPILEX AND OPSITE APPLIED. PATIENT BRUISING HAS MOVED TO THE LOWER LEG AND EDEMA IS STILL PRESENT. CRYO CUFF IS FILLED WITH ICE AND WATER AT THIS TIME AND ICE BAGS APPLIED TO THE KNEE
--- NOTE | 2017-04-06 14:47 | NUR ---
PT SHOWERED WITH THE ASSISTANCE OF OCCUPATIONAL THERAPY. LINENS WERE CHANGED. PT IS NOW SITTING UP IN CHAIR WITH CALL LIGHT IN REACH.
--- NOTE | 2017-04-06 16:01 | NUR ---
PATIENT UP WORKING WITH PHYSICAL THERAPY, GIVEN 2 NORCO PO FOR C/O 07/26 RIGHT HIP PAIN
--- NOTE | 2017-04-06 16:35 | NUR ---
PATIENT BACK TO HER CHAIR, PAIN DOWN TO 3/10 AT THIS TIME. CRYO CUFF AND ICE PACK APPLIED TO THE LEG.
--- NOTE | 2017-04-06 17:40 | NUR ---
pt up in - bedside report from Lola - pt denies needs. call light in reach.
--- NOTE | 2017-04-06 19:05 | NUR ---
BEDSIDE REPORT RECEIVED FROM LORE KHAN. PT SITTING IN CHAIR. CRYO CUFF ON RIGHT HIP. PT RATES PAIN 2-3/10 AT THIS TIME. SIGNIFICANT EDEMA NOTED BILATERALLY IN FEET. PT REFUSES PRN NORCO AT THIS TIME. CALL LIGHT AND PERSONAL SUPPLIES IN REACH.
--- NOTE | 2017-04-06 20:15 | NUR ---
PATIENT IN CHAIR. WHITEBOARD UPDATED, ROOM TIDIED.
--- NOTE | 2017-04-06 21:40 | NUR ---
PT ASSESSMENT COMPLETE AT THIS TIME, PTS LUNGS CLEAR THROUGHOUT ALL LOBES. PT INCISION SITE CLEAN DRY AND INTACT WITH MEPILEX AND OP SITE. PT RIGHT KNEE SWELLING SEEMS TO HAVE IMPROVED FROM PREVIOUS SHIFT, WARM TO TOUCH WHEN COMPARED BILATERALLY, NO NEW REDNESS NOTED. LORE DEUTSCH AND [place] REVIEWED, MEASURED KNEE WITH TAPE AND MARKED FOR MONITORING AT 55 CM. ICE APPLIED TO RIGHT KNEE, RIGHT HIP. SENSATION INTACT BILATERALLY UPPER AND LOWER EXTREMITIES, PULSES STRONG BILATERALLY UPPER AND LOWER EXTREMITIES. 2+ EDEMA NOTED BILATERALLY IN FEET, PITTING. ASSISTED PT TO BED SIDE COMMODE FOR VOID WITH FWW. PT ALSO COMPLAINGING OF 3/10 PAIN IN RIGHT LEG/HIP, ADMINISTERED PRN NORCO X 1, SCHEDULED MEDICATIONS. PT BACK IN BED WITH SCDS, HEEL PROTECTORS, ICE ON HIP AND KNEES. CALL LIGHT IN REACH.
--- NOTE | 2017-04-06 23:44 | NUR ---
pt up to bsc, voided, large amounts clear urine. Pt cooperative, requires one assist and fww., back to bed. ice to r hip and knee
--- NOTE | 2017-04-06 23:46 | NUR ---
RN REFILLED ICE PACKS AND CRYO CUFF. PATIENT NOW WILL BE WALKING INTO BR INSTEAD OF USING BS COMMODE.
--- NOTE | 2017-04-07 01:29 | NUR ---
ANSWERED CALL LIGHT, ASSISTED PT TO BSC FOR VOID. PT STATES PAIN IS HIGH 5-6/10 WITH MOVEMENT, GETTING OUT OF BED, BACK TO 3/10 AT REST. ADMINISTERED 1 PRN PO NORCO FOR PAIN, ICE TO KNEES, CRYO CUFF ON HIP, [place], SCDS AND HEEL PROTECTORS IN PLACE. TIMUR MORALES IN ROOM TO COMPLETE PT'S VITALS. PERSONAL SUPPLIES AND CALL LIGHT IN REACH.
--- NOTE | 2017-04-07 02:35 | NUR ---
PT SLEEPING AT THIS TIME, LIGHTS OFF IN ROOM, EYES CLOSED, BREATHING IS NON-LABORED. SCDS, HEEL PROTECTORS, CRYO CUFF IN PLACE. CALL LIGHT IN REACH.
--- NOTE | 2017-04-07 03:18 | NUR ---
ANSWERED CALL LIGHT, ASSISTED PT TO BSC FOR VOID. PT REQUESTING ADDITIONAL PAIN PILL AT THIS TIME, STATES INNER THIGH PAIN, RIGHT HIP 7/10 W/ AMBULATION. ADMINISTERED PRN PO NORCO X 1. CRYO CUFF ON HIP, SCDS ON, HEEL PROTECTORS ON. CALL LIGHT, PERSONAL SUPPLIES IN REACH.
--- NOTE | 2017-04-07 05:19 | NUR ---
PT SLEEPING AT THIS TIME, EYES CLOSED, BREATHING NON-LABORED, LIGHTS OFF IN ROOM.
--- NOTE | 2017-04-07 06:39 | NUR ---
PT CONTINUES RECEIVING PRN NORCO FOR PAIN THROUGHOUT SHIFT. NO IV ACCESS. PT AMBULATES W FWW AND MINIMAL ASSIST TO BSC FOR MULTIPLE VOIDS. SCDS, CRYO CUFF, ICE ON KNEE, AND HEEL PROTECTORS ON WHILE IN BED. HAS USED CALL LIGHT APPROPRIATELY.
--- NOTE | 2017-04-07 07:04 | NUR ---
PATIENT USED RESTROOM. REFILLED CRYO CUFF.
--- NOTE | 2017-04-07 08:43 | NUR ---
helped patient over to her chair, she said she was paniking and upset and didnt know why, she moved herself over just fine and is eating brekfast now.
--- NOTE | 2017-04-07 09:18 | NUR ---
pt up in ch eating, sighs and states she is anxious for no known reason - turned off cnn and turned to the calming beach channel with soothing music - discussed calming breathing and relaxation. po pain meds given / pain - pt seems more at peace by the time this rn was done with assessment. discussed with Physical therapy.
--- NOTE | 2017-04-07 09:55 | NUR ---
helped pt from the bathrrom back to the chair, i grabbed her a warm blanket and set her up with her clipbaord and cll light.
--- NOTE | 2017-04-07 10:55 | NUR ---
PT IS SITTING UP IN CHAIR WITH CALL LIGHT IN REACH. PT ASKED FOR MORE ICE WATER
--- NOTE | 2017-04-07 15:17 | NUR ---
PT IS SITTING UP IN CHAIR WITH CALL LIGHT IN REACH. PT ASKED FOR MORE ICE WATER
--- NOTE | 2017-04-07 18:03 | NUR ---
swb - pt had bout of anxiety today for unknown reasons she stated. changed cnn to beach/relax station and it helped. she had left chest/pectoral muscle pain from the fww - per PT. she strained over exerting using the walker. up to br for bm, and aox3. noco po - feet with greater dependent swelling during the day as she has been sitting in the chair and moving around with her feet down.
--- NOTE | 2017-04-07 18:12 | NUR ---
pt up in ch - toll meal denies need for pain meds.
--- NOTE | 2017-04-07 19:26 | NUR ---
RECEIVED REPORT FROM RN. PATIENT RESTING COMFORTABLY IN CHAIR. DENIES NEEDS AT THIS TIME. CALL LIGHT WITHIN REACH.
--- NOTE | 2017-04-07 21:55 | NUR ---
PATIENT RESTING COMFORTABLY IN CHAIR, BREATHING IS EVEN AND UNLABORED. REPORTS 3/10 PAIN IN RIGHT LEG AND STATES "I CAN BARELY FEEL IT." ASSISTED TO BATHROOM WITH SBA/FWW/NON-SLIP SOCKS, TOLERATED WELL. NOW RESTING COMFORTABLY IN BED. DENIES FURTHER NEEDS AT THIS TIME. ASSESSMENT DONE. ALL ORDERS IN PLACE, GAVE FRESH WATER, REFILLED CRYOCUFF. CALL LIGHT WITHIN REACH.
--- NOTE | 2017-04-08 00:55 | NUR ---
PATIENT RESTING COMFORTABLY IN BED, BREATHING IS EVEN AND UNLABORED. FLACC SCORE OF 0. ALL ORDERS IN PLACE, CALL LIGHT WITHIN REACH.
--- NOTE | 2017-04-08 02:40 | NUR ---
PATIENT RESTING COMFORTABLY IN BED, BREATHING IS EVEN AND UNLABORED. DENIES NEEDS AT THIS TIME. REPORTS 0/10 PAIN. CRYOCUFF FILLED, ALL OTHER ORDERS IN PLACE. CALL LIGHT WITHIN REACH.
--- NOTE | 2017-04-08 03:20 | NUR ---
PATIENT CALLED TO USE THE BATHROOM. 1 PERSON ASSIST WITH WALKER AND BACK TO BED. CLEANED THE TOILET BOWL AND CHANGED HAT. CRYO CUFF, SCDS, HEEL PROTECTOR ARE BACK ON. CALL LIGHT WITHIN REACH.
--- NOTE | 2017-04-08 04:41 | NUR ---
PT AWAKE, C/O R HIP ACHING 6/10 [place], REPOSITIONED WITH LITTLE RELIEF. NORCO GIVEN, CRYO CUFF TO HIP, DENIES FURTHER NEEDS. CALL LIGHT IN EASY REACH.
--- NOTE | 2017-04-08 04:48 | NUR ---
PATIENT'S NIGHT WAS UNEVENTFUL. SHE HAS BEEN RESTING COMFORTABLY IN BED THROUGHOUT SHIFT. VSS, PAIN HAS BEEN WELL CONTROLLED. DRESSING REMAINS C/D/I, TOLERATING AMBULATION. CONTINUES TO BE WEAK, REQUIRES MINIMAL ASSISTANCE IN AND OUT OF BED. CMS REMAINS INTACT. NO APPARENT IMPROVEMENTS IN EDEMA TO BLE. NO ACUTE CHANGES FROM BEGINNING OF SHIFT.
--- NOTE | 2017-04-08 06:26 | NUR ---
PATIENT RESTING COMFORTABLY IN BED, BREATHING IS EVEN AND UNLABORED. FLACC SCORE OF 0. ALL ORDERS IN PLACE. CALL LIGHT WITHIN REACH.
--- NOTE | 2017-04-08 07:20 | NUR ---
bedside report from [facility] rn. pt had good night, medicated po for pain this am -
--- NOTE | 2017-04-08 09:28 | NUR ---
PATIENT FINISHED BREAKFAST NOW SHE IS WASHED HER FACE NOW IS BRUSHING HER TEETH.
--- NOTE | 2017-04-08 10:43 | NUR ---
PT AMB W/ FWW IN [place] WITH PT. DOING VERY WELL. DENIES NEEDS.
--- NOTE | 2017-04-08 14:47 | NUR ---
MARY FILLED THE CRYO CUFF WITH FRESH ICE.
--- NOTE | 2017-04-08 18:31 | NUR ---
pt denies needs, up in ch/room/duke. unchanged.
--- NOTE | 2017-04-08 21:10 | NUR ---
PT UP IN RECLINER CHAIR, WATCHING HALLMARK CHANNEL. DENIES PAIN UNLESS SHE IS "MOVING". ISSA EDEMA 3+. ENCOURAGED PT TO MOVE HER FEET AROUND WHILE SITTING IN CHAIR. FRESH WATER GIVEN. CALL LIGHT WITHIN REACH.
--- NOTE | 2017-04-08 22:28 | NUR ---
PATIENT CALLED TO USE THE BATHROOM. 1 PERSON ASSIST WITH WALKER FROM CHAIR TO TOILET AND BACK TO BED. CRYO CUFF, HEEL PROTECTOR, SCDS ARE BACK ON. REFILLED CRYO. CALL LIGHT WITHIN REACH.
--- NOTE | 2017-04-08 22:30 | NUR ---
GRAB HOOKER REPORTED PT REQUESTED A PAIN PILL. GRAB HOOKER HAD JUST ASSISTED PT TO BED. PT SAID PAIN WAS 5/10. MED WITH ONE NORCO. CALL LIGHT WITHIN REACH. DENIES ANY OTHER NEEDS.
--- NOTE | 2017-04-08 23:42 | NUR ---
PT WITH EYES CLOSED, RESP EVEN AND UNLABORED. PT WEARING [place] ISSA, CRYOCUFF TO RIGHT HIP, PILLOW BETWEEN KNEES, WELL HEEL PROTECTORS ON WHEN SHE WENT TO BED.
--- NOTE | 2017-04-09 01:10 | NUR ---
CHECKED ON PT, SHE IS WITH EYES CLOSED, RESP EVEN AND UNLABORED.
--- NOTE | 2017-04-09 02:20 | NUR ---
PT CALLED TO USE THE BATHROOM. BACK TO BED.
--- NOTE | 2017-04-09 03:59 | NUR ---
pt called, requested pain med for 6/10 pain in legs/r hip/back. med with one [place].
--- NOTE | 2017-04-09 04:34 | NUR ---
PT CALLED, BUNDLE TIER AND LABELER TOOK TO BATHROOM. REQUESTED TO SIT UP IN THE RECLINER CHAIR. CALL LIGHT NEXT TO HER. ICE/CRYRO ON RIGHT HIP. PERSONAL ITEMS WITHIN REACH. STATES PAIN MEDICATION HAS HELPED.
--- NOTE | 2017-04-09 04:52 | NUR ---
CRYO CUFF REFILLED. PATIENT IS UP IN THE CHAIR. CALL LIGHT WITHIN REACH.
--- NOTE | 2017-04-09 06:25 | NUR ---
PT UP IN CHAIR CURRENTLY DOING EXERCISES. PLANS TO STAY UP TIL AFTER BREAKFAST. HAS SLEPT OFF AND ON THIS SHIFT. MEDICATED FOR PAIN WITH NORCO LAST AT 0359 FOR BACK/R HIP PAIN. CONTINUES TO HAVE BRUISE BACK OF RIGHT LEG. DRESSING DRY AND INTACT, WITH OLD DRAINAGE. PT ONE PERSON TRANSFER. ISSA FEET/ANKLE EDEMA CONTINUES 3+, FEET NOT PAINFUL. PLEASANT AND COOPERATIVE, USES CALL LIGHT APPROPRIATELY.
--- NOTE | 2017-04-09 08:00 | NUR ---
PATIENT UP TO BATHROOM, ADMINISTERED PAIN MEDICATION. PATIENT APPEARS TO BE MOVING WELL TOE-TOUCH. PATIENT REPORTS SLEEPING WELL LAST NIGHT. FULL BODY ASSESMENT DONE.
--- NOTE | 2017-04-09 11:44 | NUR ---
FILLED CRYO AT 11:42AM. NOW IS EATING LUNCH UP IN HER CHAIR.
--- NOTE | 2017-04-09 13:56 | NUR ---
PT SITTING IN CHAIR, WAITING FOR P.T. SHE SEEMES TO BE COPING, BUT I CAN TELL THE DAYS ARE DRAGGING ON. SHE MENTIONED HER CLOTH BALE HEADER WAS BY YESTERDAY AFTER CONFUCIANIST. EXTENDED A BLESSING, WILL CONTINUE TO FOLLOW
--- NOTE | 2017-04-09 15:00 | NUR ---
PATIENT UP AMBULATING WITH PHYSICAL THERAPY, APPEARS TO BE TOLERATING WELL. VS STABLE. PATIENT VISITING WITH FAMILY. REPORTS GOOD PAIN CONTROL. SHOWERED.
--- NOTE | 2017-04-09 15:07 | NUR ---
PT CALLED ME TO THE ROOM WITH A QUESTION ABOUT PT. SHE IS CONCERNED BECAUSE NOEL IS HAVING HER APPROACH THE STAIRS WITH HER INJURED LEG, PT THINKS SHE SHOULD BE DOING IT THE OTHER WAY SHE STATES SHE IS TALKING TO HER DAUGHTER AND OTHERS ABOUT THIS AND THEY ALL SAY IT IS GOOD LEG FIRST AND THEN THE BAD LEG. I HAPPENED TO GO INTO PHYSICAL THERAPY ROOM TO TALK TO NOEL AND THE PT WAS THERE SO WE HAD A DISCUSSION SO ALL OF US COULD UNDERSTAND AND PT NOW UNDER-STANDS A LITTLE BETTER BUT SHE STILL IS NOT POSITIVE THIS IS RIGHT.
--- NOTE | 2017-04-09 18:26 | NUR ---
REFILLED CRYO AT 1826. PATIENT IS SITTING UP IN HER CHAIR READING THE NEWSPAPER.
--- NOTE | 2017-04-09 18:40 | NUR ---
PATIENT WORKED WITH PHYSICAL THERAPY, AND SHOWERED. GOOD PAIN CONTROL. UP THROUGHOUT DAY, ICE THERAPY. BRUISING IMPROVED TO LEG. PATIENT HAD FAMILY VISIT ON AND OFF THROUGHOUT DAY.
--- NOTE | 2017-04-09 19:10 | NUR ---
recieved report. pt up in recliner. cyro cuff in place. call light within reach. no needas at this time.
--- NOTE | 2017-04-09 19:44 | NUR ---
CALLED AND NOTIFIED OF PT HAVING SIGNIFICANT PITTING EDEMA BLE EXTREMETIES UP TO HIPS. ORDER FOR TO CONSULT TOMORROW.
--- NOTE | 2017-04-09 20:09 | NUR ---
PT VITALS COMPLETED. REQUESTED TO USE THE BATHROOM. MININAL ASSIST TO AND FROM BATHROOM. FEET ELEVATED IN RECLINER. MASON HOSE ON. DENIES PAIN HER CALVES, NOTE NO SHORTNESS OF BREATH WHEN AMBULATING. ISSA FEET/LEG EDEMA 3+ CONTUINUES. PT AWARE THAT DR. GE WAS NOTIFIED AND THAT HE REFERED "DR ALEXANDER" TO CONSULT.
--- NOTE | 2017-04-09 21:00 | NUR ---
PT SITTING UP IN CHAIR, NO APPARENT DISTRESS AT THIS TIME. REPORTS PAIN AT 3/10, STATES "ITS NOT BAD UNTIL I MOVE IT." GAVE NORCO FOR PAIN. ADJUSTED TEDS, PULLED THEM UP TO GET WRINKLES OUT. PLUGGED CELL PHONE IN PER PT REQUEST. GAVE FRESH ICE WATER. NO FURTHER NEEDS. CALL LIGHT IN REACH.
--- NOTE | 2017-04-09 21:44 | NUR ---
helped pt up to bathroom. tollerated well. back to bed for the ngiht. call light within reach. personal items at bedside. cyro cuff in place. no further needs at this time.
--- NOTE | 2017-04-09 23:47 | NUR ---
brought pt warm blanket per request. pt has no further needs. call light in reach.
--- NOTE | 2017-04-10 01:58 | NUR ---
PT UP TO RESTROOM. REPORTS NO PAIN AT THIS TIME. PERSONAL ITEMS AND CALL LIGHT AT BEDSIDE.
--- NOTE | 2017-04-10 02:14 | NUR ---
PATIENT CALLED TO USE THE BATHROOM. 1 PERSON ASSIST WITH WALKER. PATIENT IS BACK IN BED. CRYO CUFF, SCDS AND HEEL PROTECTOR ARE BACK ON. CALL LIGHT WITHIN REACH. PATIENT REQUESTED PAIN MEDICATION. LORE GUTIERREZ NOTIFIED.
--- NOTE | 2017-04-10 02:17 | NUR ---
AFTER AMBULATION TO BATHROOM, PT REPORTED 6/10 PAIN. NORCO GIVEN. WILL REASSESS IN 1 HOUR. PT TRYING TO SLEEP NOW. CALL LIGHT WITHIN REACH.
--- NOTE | 2017-04-10 03:38 | NUR ---
WENT TO REASSESE PT PAIN LEVEL. PT WAS SLEEPING. RR WNL. CALL LIGHT WITHIN REACH. PREVIOUSLY INFORMED PT TO CALL IF PAIN ISNT RELIEVED WITH PAIN MEDICATION. NO FURTHER NEEDS AT THIS TIME.
--- NOTE | 2017-04-10 04:45 | NUR ---
TOOK PATIENT TO THE BATHROOM 1 PERSON ASSIST WITH WALKER. PATIENT IS UP IN THE CHAIR. CRYO CUFF ON. CALL LIGHT WITHIN REACH. PATIENT PREFERRED LEGS DOWN.
--- NOTE | 2017-04-10 04:56 | NUR ---
swing bed pt. dr rivera order increase in lasix. I/O good @ 650 in and 1600 out. norco for pain control. pt slept throughout the night. 1pa with fww "toe touch". ice therapy on right hip. no iv acsess. regular diet. working with pt to walk up stairs.
--- NOTE | 2017-04-10 05:05 | NUR ---
PT UP TO BATHROOM TO VOID, TOLERATED MINIMAL ASSIST WITH FWW WELL. PT NOW SITTING UP IN CHAIR PER REQUEST. GAVE FRESH ICE WATER. MACHINE SHOP WORKER RE-FILLED CRYOCUFF WITH ICE. CALL LIGHT IN REACH. NO FURTHER NEEDS.
--- NOTE | 2017-04-10 06:44 | NUR ---
pt requested to use bathroom. lennox assistance. states her feet "feel better than last night night" "seem to be less tight" back into her recliner chair with call light within her reach.
--- NOTE | 2017-04-10 07:37 | NUR ---
PT REPORT RECEIVED FROM LORE OSBORNE AND MATT. PT AWAKE AND SITTING UP IN CHAIR. STATES SHE IS FEELING WELL. ASKED ABOUT PAIN MEDICATION PRIOR TO BUTTERMAKER.
--- NOTE | 2017-04-10 08:45 | NUR ---
CHECKED IN PN PT, SHE WAS HAVING BREAKFAST. SHE SEEMED IN GOOD SPIRITS. I QUIZZED HER REGARDING HER QUESTIONS ABOUT P.T. SHE SAID THEY WERE ANSWERED, BUT I STILL GET THE FEELING SHE IS NOT BUYING IN ON NOEL[employer] METHOD. LORE KHAN CAME IN AND GAVE MEDS, EXTENDED A BLESSING. WILL CONTINUE TO FOLLOW NEEDED
--- NOTE | 2017-04-10 08:50 | NUR ---
PT IN CHAIR AWAKE. SBA TO THE BR. SET PT UP FOR SHOWER. AM CARE. SET PT UP FOR BRK.
--- NOTE | 2017-04-10 09:09 | NUR ---
PT RATES PAIN 3\10 BUT WOULD LIKE THE TWO [place] FOR UPCOMING PHYS. THER.
--- NOTE | 2017-04-10 09:41 | NUR ---
PT UP IN TECHNICAL SERVICE REPRESENTATIVE ROOM WITH THERAPIST
--- NOTE | 2017-04-10 17:35 | NUR ---
PT AMB TO BATHROOM. TOLERATED WELL. PT UP IN CHAIR EATING DINNER. DENIES PAIN AND OTHER NEEDS AT THIS TIME.
--- NOTE | 2017-04-10 17:45 | NUR ---
PT DID WELL WITH PHYS. THER. TODAY. DID STAIRS. SBA WITH FWW IN ROOM. NO NAUSEA, PAIN MINIMAL. RA. MAY DC TOMORROW.
--- NOTE | 2017-04-10 19:27 | NUR ---
TOOK PATIENT TO THE BATHROOM USING WALKER AND BACK TO CHAIR. LEGS UP CRYO BACK WIRELESS TELEGRAPHER LIGHT WITHIN REACH.
--- NOTE | 2017-04-10 19:30 | NUR ---
RECIEVED REPORT FROM DAY SHIFT RN. PT UP IN CHAIR. NO NEEDS AT THIS TIME. CALL LIGHT WITHIN REACH
--- NOTE | 2017-04-11 | NUR ---
PT APPEARS TO BE SLEEPING. SCD'S IN PLACE. TEDHOSE ON. RESPIRATIONS WNL AND NONLABORED. CRYOCUFF ON RIGHT HIP. NO NEEDS AT THIS TIME. CALL LIGHT WITHIN REACH.
--- NOTE | 2017-04-11 01:08 | NUR ---
PATIENT CALLED TO USE THE BEDSIDE COMMODE. 1 PERSON ASSIST WITH WALKER. PATIENT STATED " AM I HAVING FEVER?" TOOK TEMP ORALLY IS 97.9. CALL BUTTON WITHIN REACH.
--- NOTE | 2017-04-11 01:24 | NUR ---
pt reports 5/10 pain. norco given. helped pt ajust in bed. no other needs at this time.
--- NOTE | 2017-04-11 03:04 | NUR ---
pt reports 6/10 pain. up to bsc. back to bed. scd's in place. cryocuff on right hip. tedhose on. no other needs at this time. call light within reach
--- NOTE | 2017-04-11 05:45 | NUR ---
PT UP TO BATHROOM, MINIMAL ASSIST. PT NOW SITTING UP IN CHAIR. RE-FILLED CRYO CUFF WITH ICE. ALL PERSONAL BELONGING AT CHAIR SIDE. CALL LIGHT IN REACH.
--- NOTE | 2017-04-11 06:35 | NUR ---
PT SLEPT THROUGH TH NIGHT LAST PAIN MED GIVEN AT 0400. POSSIBLE DC TODAY. NO IV ACCESS. PT SBA WITH FWW.
--- NOTE | 2017-04-11 06:50 | NUR ---
PT SLEPT THROUGH TH NIGHT LAST PAIN MED GIVEN AT 0400. POSSIBLE DC TODAY. NO IV ACCESS. PT SBA WITH FWW.
--- NOTE | 2017-04-11 07:28 | NUR ---
REPORT RECEIVED FROM LORE OSBORNE AND LORE GUTIERREZ. PT REQUESTED TO SPEAK WITH OCCUPATIONAL THERAPY ABOUT SUPPLIES PRIOR TO DISCHARGE. STATES SOME ANXIETY ABOUT GOING HOME. PT IS UP IN CHAIR.
--- NOTE | 2017-04-11 09:07 | NUR ---
AM MEDS GIVEN. PT UP IN CHAIR WITH LEGS ELEVATED. DENIES PAIN AT THIS TIME. CARE CONFERENCE IN ROOM. GOALS AND DISCHARGE PLAN DISCUSSED.
--- NOTE | 2017-04-11 10:15 | NUR ---
PT RECEIVED PAIN MEDS PRIOR TO PHYSICAL THERAPY PER PT REQUEST. PT IS UP IN CHAIR WITH LEGS ELEVATED. CALM AND PLEASANT. DENIES OTHER NEEDS AT THIS TIME.
--- NOTE | 2017-04-11 12:49 | NUR ---
PATIENT DOING HER OWN EXERCISES IN HE ROOM, PAIN LEVEL AT THIS CURRENT TIME AT A 4/10.
--- NOTE | 2017-04-11 12:56 | NUR ---
CRYO CUFF FILLED WITH ICE AND PATIENT PROVIDED WITH NEW CUP OF ICE WATER.
--- NOTE | 2017-04-11 13:13 | NUR ---
PT SITTING UP IN CHAIR. FAMILY AND FRIENDS IN ROOM.
--- NOTE | 2017-04-11 14:10 | NUR ---
PT HAS VISITOR IN ROOM AND IS DOING PAPERWORK FOR HER JOB.
--- NOTE | 2017-04-11 14:59 | NUR ---
PT ASSISTED TO CONCHA FROM BATHROOM, COMPLETED PHYSICAL THERAPY. PT DENIES NEEDS AT THIS TIME.
--- NOTE | 2017-04-11 16:39 | NUR ---
PT UP TO RESTROOM WITH FWW. TOLERATED WELL. TOE TOUCH WEIGHT ON RIGHT SIDE. BACK TO CHAIR WITH LEGS ELEVATED. EDEMA IN LEGS APPEARS MUCH BETTER TODAY, BILATERAL FEET STILL 3+. PT STATES THEY FEEL A LITTLE BETTER TODAY.
--- NOTE | 2017-04-11 18:03 | NUR ---
PT SAT UP IN CHAIR MOST OF DAY. WALKED IN SOT[place]O X3. PT\OT TODAY. EDEMA SIGN. LESS IN LEGS, FEET ARE STILL 3+. DRESSING CDI. CYRO ON HIP. UO QS. LUNGS CLEAR. RA. NO IV ACCESS. ANXIETY REGARDING DISCHARGE, NEW PHYS. THER. GOAL, TO GET OUT OF BED BY SELF. 1 SBA FWW. GOOD APPETITE, BM TODAY.
--- NOTE | 2017-04-11 19:40 | NUR ---
PATIENT IN CHAIR DOES NOT NEED ANYTHING AT THIS TIME. WHITEBOARD UPDATED. ROOM TIDIED.
--- NOTE | 2017-04-11 19:58 | NUR ---
RECEIVED REPORT FROM DAY SHIFT RN. PT UP IN CHAIR AT THIS TIME. PT REQUESTED PAIN MEDICATION FOR BED TIME. ALSO REPORTS A JITTERINESS. STATING ITS PROBABLY FROM UNCERTAINTY OF KNOWING WHAT IS GOING TO HAPPEN OR WHEN SHE WILL LEAVE. REASSURED PT WE WONT SEND HER HOME UNPREPARED. PM MED PASS COMPLETE. ASSESSMENT COMPLETE. CALL LIGHT WITHIN REACH. NO FURTHER NEEDS AT THIS TIME.
--- NOTE | 2017-04-11 20:20 | NUR ---
PT UP TO BATHROOM. PT ABLE TO GET OUT OF CHAIR WITHOUT ANY ASSISTANTS. TOLLERATED WELL. WALKED TO BATHROOM WITH RIGHT TOE TOUCH. MINIMAL PAIN.
--- NOTE | 2017-04-11 23:41 | NUR ---
PT APPEARS TO BE SLEEPING. RR WNL, UNLABORED AND EQUAL. CRYO CUFF ON RIGHT HIP. SCD'S AND TEDHOSE IN PLACE. PAIN PILL GIVEN BEFORE BED AND SEEMS TO BE HELPING. CALL LIGHT WITHIN REACH.
--- NOTE | 2017-04-12 01:28 | NUR ---
RN IN ROOM
--- NOTE | 2017-04-12 02:18 | NUR ---
PT APPEARS TO BE SLEEPING. RESPIRATIONS WNL. CALL LIGHT WITHIN REACH.
--- NOTE | 2017-04-12 04:32 | NUR ---
SWING SHIFT PT. PLAN ON STAYING 2-3 MORE DAYS. AXIOUS ABOUT RETURNIGN HOME. PT SLEPT WELL THROUGHOUT THE NIGHT. WALKED WELL TO THE BATHROOM. EDEMA HAS IMPROVED. RIGHT HIP DRESSING IS CLEAN C/D/I. OT VISIT TODAY TO HELP WITH NEW TOOLS FOR HOME. PT TO WALK 3X PER DAY. PT ON REGUALR DIET. GOAL IS TO BE ABLE TO GET UP WITOUT ASSISTANTS. PT WAS ABLE TO ACOMPLISH THIS PM SHIFT. TOLERATING WELL. CRYO CUFF ON RIGHT HIP. NORCO GIVEN BEFORE BED. NO IV. NORCO LAST GIVEN @ 0114.
--- NOTE | 2017-04-12 07:29 | NUR ---
RECIEVED REPORT FROM LINE APPLIANCE ASSEMBLER NURSE. PATIENT UP IN BATHROOM WITH ASSIST. BACK TO CHAIR. PATIENT DENIES NEEDS. CALL LIGHT IN REACH.
--- NOTE | 2017-04-12 08:12 | NUR ---
PATIENT RESTING UP IN CHAIR. MEAL TRAY SERVED. VS OBTIANED. NO C/O PAIN. MORNING MEDICATION ADMINISTERED. LUNGS CLEAR, HR REGULAR, BS ACTIVE. FAINT PEDAL PULSES PALPATED. +3 EDEMA BLE, R>L. SOME SHADOWING NOTED ON MEPILEX. PATIENT DENIES NEEDS AT THIS TIME. CALL LIGHT IN REACH.
--- NOTE | 2017-04-12 09:40 | NUR ---
ASSISTED PATIENT TO BATHROOM. VOIDED. BACK TO CHAIR. ELEVATED LEGS ON 2 PILLOWS IN CHAIR. REFILLED WATER PITCHER. PATIENT DENIES FURTHER NEEDS. CALL LIGHT IN REACH.
--- NOTE | 2017-04-12 10:13 | NUR ---
PT IS SITTING UP IN CHAIR WITH FEET ELEVATED AND CALL LIGHT IN REACH. PT DID NOT NEED ANYTHING AT THE MOMENT. VITALS WERE ALREADY TAKEN BY NURSE KATJA.
--- NOTE | 2017-04-12 10:28 | NUR ---
RN IN TO ADMINISTER PAIN MEDICATION PER MAR.
--- NOTE | 2017-04-12 10:41 | NUR ---
PATIENT WORKING WITH PHYSICAL THERAPY AMBULATING [place].
--- NOTE | 2017-04-12 12:58 | NUR ---
PT SITTING IN CHAIR-ALERT, ORIENTED AND EATING LUNCH. SHE FELT IT WAS A LITTLE EARLY, BUT SEEMED TO BE ENJOYING IT. TALKED ABOUT [place]AMP FOR HER AT HOME AND HER BROTHER SEEMS TO BE WORKING ON THIS. SHE DID MENTION THAT SHE HAS NOW FINALLY CONQUERED THE STAIRS, AND SEEMED TO FEEL GOOD ABOUT THIS. EXTENDED A BLESSING, WILL CONTINUE TO FOLLOW
--- NOTE | 2017-04-12 13:37 | NUR ---
ASSISTED PATIENT TO BATHROOM, VOIDED, BACK TO CHAIR. PHYSICAL THERAPY COMING IN 10 MINUTES TO WORK WITH HER. PATIENT DENIES FURTHER NEEDS. CALL LIGHT IN REACH.
--- NOTE | 2017-04-12 15:05 | NUR ---
HELP DESK SUPERVISOR ASSISTING PATIENT TO BATHROOM.
--- NOTE | 2017-04-12 15:07 | NUR ---
PT CALLED TO USE BATHROOM, PT WALKED TO BATHROOM WITH WALKER, USED THE TOILET, THEN RETURNED TO THE CHAIR AND IS NOW SITTING UP WITH CALL LIGHT IN REACH
--- NOTE | 2017-04-12 15:57 | NUR ---
REFILLED CRYO CUFF WITH ICE. PATIENT RESTING UP IN CHAIR. TOILETING OFFERED. PATIENT RATES PAIN A /10. ELEVATED BLE ON 2 PILLOWS IN CHAIR. REFILLED WATER PITCHER. PATIENT DENIES FURTHER NEEDS. CALL LIGHT IN REACH.
--- NOTE | 2017-04-12 18:37 | NUR ---
PT IS SITTING IN CHAIR WITH FEET ELEVATED AND CALL LIGHT IN REACH. PT DID NOT NEED ANYTHING AT THE MOMENT
--- NOTE | 2017-04-12 19:30 | NUR ---
ASSISTED PT FROM BATHROOM BACK INTO CHAIR. PT HAS NO CONCERNS AT THIS TIME. PT DENIES PAIN WELL.
--- NOTE | 2017-04-12 19:56 | NUR ---
SITTING UP IN CHAIR, LEGS ELEVATED. UP TO BRP USING ONE ASSIST AND FWW. VOIDED, BACK TO BED, IMPROVED GAIT ANS STAMINE. BACK TO BED, COOP
--- NOTE | 2017-04-12 20:00 | NUR ---
RECEIVED REPORT AT 1900. FOUND PT SITTING IN CHAIR. PT DENIED PAIN OR ANY NEEDS AT THAT TIME. KRYO CUFF TO RIGHT HIP. [place]ON HOSE ON BOTH LOWER LEGS.
--- NOTE | 2017-04-12 22:00 | NUR ---
V/S ARE WDL, PAIN WAS 5/10, PRN NORCO 1 TAB WAS GIVEN. DRESSING ON RIGHT HIP IS D/I. BRUISING SEEMS TO GET BETTER, EDEMA ON RIGHT LEG IS STILL +3, LEFT LEG IS +2 PITTING EDEMA. HANDS AND ARMS ARE EDEMATOUS WELL. ALL LOBES ARE CLEAR. PT IS MOVING VERY WELL WITH HER WALKER. THERE ARE NO NEW CONCERNS AT THIS TIME.
--- NOTE | 2017-04-13 00:15 | NUR ---
PT IS SLEEPING AT THIS TIME.
--- NOTE | 2017-04-13 02:05 | NUR ---
PT IS STILL SLEEPING AT THIS TIME.
--- NOTE | 2017-04-13 02:20 | NUR ---
ASSISTED PT TO BATHROOM. PT WILL CALL WHEN SHE IS DONE.
--- NOTE | 2017-04-13 04:00 | NUR ---
PT IS SLEEPING AT THIS TIME.
--- NOTE | 2017-04-13 05:08 | NUR ---
V/S ARE WDL. PT OVERALL SLEPT MOST OF THE NIGHT. PT AT ONE POINT NEEDED TO USE THE RESTROOM AND AT THAT POINT SHE WAS UNABLE TO TELL ME WHERE SHE WAS AND WHY SHE WAS IN THE HOSPITAL. PT SEEMED PANICKED WHEN SHE WOKE UP. PT NEEDED A FEW MINUTES TO SETTLE. EDEMA ON HER RIGHT LEG IS ON THE LOWER SIDE OF +3. LEFT LEG IS +2, BOTH HANDS ARE STILL PUFFY WELL. DRESSING IS D/I. ALL LOBES ARE CLEAR. PT MOVES WELL WITH A 1 PERSON ASSISTING HER WITH HER FWW. NO NEW CONCERNS FOR THIS PT.
--- NOTE | 2017-04-13 07:44 | NUR ---
RECIEVED BEDSIDE REPORTS FROM LORE DEUTSCH. PT AWAKE AND ALERT IN CHAIR. PT REQUESTS PAIN MEDS PRIOR TO PHYSICAL THERAPY. BRIDGETT POWERS CUFF IN PLACE. SCD WHILE IN BED. ALL PERSONAL BELONGINGS WITH IN REACH.
--- NOTE | 2017-04-13 09:32 | NUR ---
PT IS SITTING IN CHAIR WITH FEET ELEVATED AND CALL LIGHT IN REACH. PT DID NOT NEED ANYTHING AT THE MOMENT
--- NOTE | 2017-04-13 14:02 | NUR ---
PT SITTING IN CHAIR, GETTING READY TO EAT BREAKFAST. SHE SAID SHE SLEPT FAIRLY, BUT HAS A HABIT OF WAKING UP EARLY, AND HER FOOD CAME EARLY TODAY. VERY FRIENDLY TODAY, WILL CONTINUE TO FOLLOW
--- NOTE | 2017-04-13 15:40 | NUR ---
REFILLED CRYO AT 1540.
--- NOTE | 2017-04-13 16:32 | NUR ---
AT 0841 THIS MORNING CHANGED HER BED LINENS AND SHE BRUSHED HER TEETH.
--- NOTE | 2017-04-13 18:23 | NUR ---
PT UP WALKING WITH PHYSICAL THERAPY. CONTINUES TO IMPROVE WITH BALANCE. CALLS APPROPRIATELY. 1 PERSON ASSIST WITH FWW. PT REPORTS PAIN IS WELL CONTROLLED ON PRN MEDS.
--- NOTE | 2017-04-13 19:00 | NUR ---
RECIEVED BEDSIDE REPORT FROM DAY SHIFT NURSE. PATIENT RESTING UP IN CHAIR. ELEVATED BLE ON TWO PILLOWS. NO C/O PAIN AT THIS TIME. CALL LIGHT IN REACH.
--- NOTE | 2017-04-13 19:45 | NUR ---
ROUNDED CHARGE. PATIENT IS UP IN RECLINER READING A MAGAZINE. PATIENT DENIES ANY PAIN AT THIS TIME. PATIENT HAS CRYO IN PLACE ON RIGHT HIP AND IT HAS SUFFICIENT ICE. TEDHOSE IN PLACE. PATIENT DENIES ANY NEEDS, COMMENT, QUESTIONS, OR CONCERNS AT THIS TIME. CALL LIGHT IN REACH.
--- NOTE | 2017-04-13 20:50 | NUR ---
ASSESSMENT COMPLETE, PT CONTINUES TO HAVE BRUISING, PAIN AND SWELLING TO RT KNEE, THIGH AND LEG. PT REPORTS PAIN AT A 3/10 WITHOUT MOVEMENT. 7.5 MG NORCO GIVEN BEFORE PT AMBULATES BACK TO BED. SHE IS UP TO CHAIR AT THIS TIME WITH CYRO ICE IN PLACE, AND ANTIEMOLITIC STOCKING ON. PT HAS FRESH WATER AND NO REQUESTS AT THIS TIME.
--- NOTE | 2017-04-13 21:57 | NUR ---
VITALS AND I&OS DONE AND CHARTED. PT IS IN HER CHAIR. SHE WOULD LIKE ME TO COME IN AFTER A BIT AND HELP HER WITH GETTING INTO BED. I ASKED HER TO CALL WHEN SHE IS READY SHE SAID OK. BEDSIDE TABLE AND CALL LIGHT WITHIN REACH.
--- NOTE | 2017-04-13 22:51 | NUR ---
HELPED PT TO THE BATHROOM AND INTO BED WITH HER WALKER. PUT SCDS ON HER , SHE REFUSED HEEL PROTECTORS AND ADDED ICE TO HER CRYO. GOT HER COMFORTABLE IN HER BED. SHE SAID SHE NEEDED NOTHING ELSE AT THIS TIME. BEDSIDE TABLES AND CALL LIGHT WITHIN REACH.
--- NOTE | 2017-04-13 23:33 | NUR ---
PATIENT C/O PAIN 6/10 FROM "TOP OF RIGHT THIGH DOWN TO HER KNEE." STATES IT IS A "CONSTANT ACHE." 1 TAB NORCO ADMINISTERED. CRYO CUFF IN PLACE ON R HIP. PATIENT DENIES FURTHER NEEDS. CALL LIGHT IN REACH.
--- NOTE | 2017-04-14 01:57 | NUR ---
PATIENT SLEEPING, EVIDENCE BY SNORING. SCDS IN PLACE. CALL LIGHT IN REACH.
--- NOTE | 2017-04-14 03:55 | NUR ---
PT IS RESTING WITH EYES CLOSED, RESPIRATIONS EVEN AND NONLABORED. CALL LIGHT IS WITHIN REACH.
--- NOTE | 2017-04-14 04:36 | NUR ---
HELPED PT TO THE BATHROOM AND BACK TO BED WITH HER WALKER. PUT HER SCDS BACK ON , PUT FRESH ICE IN HER CRYO. AND PER PT REQUEST I INFORMED HER NURSE SHE WAS IN PAIN AND WANTED A PAIN PILL.
--- NOTE | 2017-04-14 04:42 | NUR ---
PT IS AWAKE IN BED AFTER GOING TO THE RESTROOM. SHE HAS 5/10 PAIN AT THIS TIME AND 1 TAB OF 7.5MG GIVEN. PT HAS NO OTHER NEEDS AT THIS TIME.
--- NOTE | 2017-04-14 05:03 | NUR ---
PT SLEPT MOST OF THE NIGHT. SHE AMBULATES WITH 1PA AND TTWB. DRESSING ON RT HIP IS INTACT WITH OLD SHADOWING, AND KNEE IS STILL SWOLLEN AND BRUISED. PT WORE ANTIEMBOLITIC STOCKINGS AND CYRO. CONTINUING TO CONTROL PAIN WITH PRN NORCO.
--- NOTE | 2017-04-14 05:55 | NUR ---
HELPED PT TO THE CHAIR WITH HER WALKER. BOTH BEDSIDE TABLES WITHIN REACH. CALL LIGHT IN HER LAP. CRYO HOOKED UP AND PUT UNDER R HIP. FRESH ICE WATER IN CUP GIVEN. I&OS DONE AND CHARTED. FIXED PILLOWS TO HER LIKING. ASKED PT IF SHE NEEDED ANYTHING ELSE AT THIS TIME? SHE SAID NO.
--- NOTE | 2017-04-14 07:15 | NUR ---
RECIEVED BEDSIDE REPORT FROM LORE GAN AND LORE HIGHTOWER. PT AWAKE AND ALERT IN CHAIR. PT HAD QUESTIONS ABOUT EARS, SHE WOULD LIKE A SHOWER THIS SHIFT. RN AND COLORIST PHOTOGRAPHY AWARE AND WILL CARE PLAN FOR SHOWER. PT REPORTS PAIN IS WELL CONTROLED WITH PRN PAIN MEDS. SHE WOULD LIKE TO PRE-MEDICATE FOR PHYSICAL THERAPY. ENCOURAGED PT TO CONTINUE EXERCISES IN THE CHAIR AND WIGGLE TOES/MOVE FEET WHILE LEGS ARE ELEVATED.
--- NOTE | 2017-04-14 07:43 | NUR ---
PATIENT IN CHAIR. WHITEBOARD UPDATED.
--- NOTE | 2017-04-14 16:50 | NUR ---
HELPED PATIENT INTO THE BATHROOM, I TOLD HER WE COULD HOP INTO THE SHOWER AFTER SHE USED THE RESTROOM, I SET UP HER SHOWER AND SHE IS DOING THE CARE HERSELF, I CHANGED HER LINENS AND FILLED HER CRYO CUFF WELL WHILE SHE WAS SHOWERING, AND I TOLD HER WHEN SHE WAS DONE TO PULL THE BLUE CALL LIGHT WHEN SHE WAS DONE.
--- NOTE | 2017-04-14 18:34 | NUR ---
CALLED DR GE RE: DRESSING. NO DOCUMENTATION FOUND IN SYSTEM TO WHEN DRESSING WAS LAST CHANGED. NO ORDERS FOUND RE: DRESSING CHANGES. PT DRESSING WAS WET AFTER A SHOWER. DR GE AUTHORIZED CHANGING DRESSING. OLD DRESSING REMOVED, SKIN UNDER DRESSING IS INTACT, INCISION IS WELL APPROXIMATED. NO REDNESS, CRUSTINESS, OR SWELLING. MILD BRUISING UNDER DRESSING. LYNN ARE INTACT. NEW DRESSING APPLIED WITH OPSITE OVER IT.
--- NOTE | 2017-04-14 18:41 | NUR ---
PT UP WITH PHYSICAL THERAPY. PT HAS CONCERNS ABOUT EQUIPMENT NEEDED FOR HOME AFTER DISCHARGE. PT UP TO SHOWER WITH FERRY HAND. DRESSING CHANGED. PT REPORTED BLOODY NOSE, APPLIED PRESSURE AND IT RESOLVED. PT SCARED ABOUT GOING HOME, NEEDS ENCOURAGMENT TO PROGRESS. NO IV ACCESS. TOLERATING MEALS AND FLUIDS WELL. .
--- NOTE | 2017-04-14 19:30 | NUR ---
RECIEVED REPORT FROM DAY SHIFT NURSE. PATIENT SITTING UP IN CHAIR WITH BLE ELEVATED. ICE IN PLACE ON R HIP. PATIENT DENIES NEEDS. CALL LIGHT IN REACH.
--- NOTE | 2017-04-14 20:00 | NUR ---
PATIENT C/O PAIN IN RLE. SHE STATES THE PAIN IS EVERYWHERE FROM HER GROIN TO HER GARCIA. PEDAL PULSES ARE FAINT BUT PALPABLE. FEET ARE WARM TO TOUCH AND EDEMATOUS +2 BILATERALLY, R>L. LEGS ARE ELEVATED ON 2 PILLOWS WHILE PATIENT IS UP IN CHAIR. TEDS IN PLACE. CRYO CUFF ON R HIP. DRESSING TO R HIP IS C/D/I. LUNGS ARE CLEAR, ENCOURAGED IS. HR REGULAR. BS HYPERACTIVE. PAIN MEDICATION ADMINSTERED PER MAR. PATIENT DENIES FURTHER NEEDS. CALL LIGHT IN REACH.
--- NOTE | 2017-04-14 22:21 | NUR ---
PATIENT SLEEPING UP IN CHAIR. EYES CLOSED. LEGS ELEVATED ON 2 PILLOWS. CALL LIGHT IN REACH.
--- NOTE | 2017-04-14 23:39 | NUR ---
PATIENT RESTING WITH EYES CLOSED IN BED. SCDS IN PLACE. CALL LIGHT IN REACH.
--- NOTE | 2017-04-15 00:37 | NUR ---
PATIENT RESTING WITH EYES CLOSED IN BED. SCDS IN PLACE. CALL LIGHT IN REACH.
--- NOTE | 2017-04-15 00:43 | NUR ---
VITALS AND I&OS DONE AND CHARTED. HELPED HER TO THE BATHROOM AND BACK TO BED WITH HER WALKER. PUT HER SCDS ON AND CRYO CUFF PLUGGED IN. ADDED MORE ICE TO THE CRYO. PER PT REQUEST I INFORMED HER RN THAT SHE WOULD LIKE SOMETHING FOR PAIN. BEDSIDE TABLE AND CALL LIGHT WITHIN REACH.
--- NOTE | 2017-04-15 02:33 | NUR ---
FILLED CRYO WITH NEW ICE
--- NOTE | 2017-04-15 03:30 | NUR ---
PATIENT SLEEPING IN BED. SCDS IN PLACE. CALL LIGHT IN REACH.
--- NOTE | 2017-04-15 05:04 | NUR ---
HELPED PT TO THE BATHROOM AND BACK TO THE CHAIR WITH HER WALKER. HOOKED UP HER CRYO. PT NEEDS NOTHING ELSE AT THIS TIME. BEDSIDE TABLE , CALL LIGHT, PHONE, WATCH, AND HEARING AIDS WITHIN REACH. CHARTED HER I&OS.
--- NOTE | 2017-04-15 06:38 | NUR ---
PATIENT UP IN CHAIR. C/O "ACHEY PAIN" IN RLE. ADMINISTERED 1 TAB NORCO. ELEVATED LEGS ON 2 PILLOWS, SCDS AND TEDS IN PLACE. WARM BLANKET APPLIED. REFILLED WATER PITCHER. PATIENT DENIES FURTHER NEEDS. CALL LIGHT IN REACH.
--- NOTE | 2017-04-15 09:18 | NUR ---
PT CARE ASSUMED. PT RESTING IN CHAIR. GIVEN AM MEDS. PT MEDICATED PRIOR TO PHYSICAL THERAPY. NO OTHER NEEDS AT THIS TIME.
--- NOTE | 2017-04-15 09:54 | NUR ---
PT UP WITH PHYSICAL THERAPY
--- NOTE | 2017-04-15 11:34 | NUR ---
PT IN CHAIR AWAKE. LINEN CHANGE. AM CARE. FRESH WATER. CRYO REFILL
--- NOTE | 2017-04-15 12:22 | NUR ---
PT SITTING UP IN CHAIR. EATING LUNCH
--- NOTE | 2017-04-15 13:57 | NUR ---
PT UP TO BATHROOM TO VOID. AMBULATES WITH FWW AND VERY LITTLE ASSIST.
--- NOTE | 2017-04-15 17:16 | NUR ---
PT HAS DONE WELL THROUGH SHIFT. HAS ONLY REQUIRED 2 DOSES OF PAIN MEDICATION BE GIVEN. P MOVED FROM ROOM 121 TO ROOM 108 DURING SHIFT WHICH HAS LED TO SLIGHT ANXIETY. PT REPORTS SHE LIKES TO BE ABLE TO SEE WHATS GOING ON. NO OTHER CONCERNS DURING DAY. WORKED WITH PHYSICAL THERAPY AND TOLERATED WELL.
--- NOTE | 2017-04-15 19:15 | NUR ---
RECIEVED REPORT FROM DAY SHIFT NURSE. PATIENT ASLEEP UP IN CHAIR. CALL LIGHT IN REACH.
--- NOTE | 2017-04-15 19:50 | NUR ---
VITALS AND I&OS DONE AND CHARTED. HELPED HER TO THE BATHROOM AND BACK TO THE CHAIR WITH HER FWW. FRESH ICE IN HER WATER CUP AND ALSO IN HER CRYO. BEDSIDE TABLE AND CALL LIGHT WITHIN REACH.
--- NOTE | 2017-04-15 21:03 | NUR ---
HELPED PT FROM THE BATHROOM TO HER CHAIR. GOT HER A PILLOW AND A BLANKET. CHARTED I&OS.BEDSIDE TABLE AND CALL LIGHT WITHIN REACH.
--- NOTE | 2017-04-15 21:48 | NUR ---
PATIENT UP TO BATHROOM WITH ASSIST FROM HOME OFFICE CLAIM SPECIALIST. BACK TO BED. ELEVATED BLE ON 3 PILLOWS. SCDS AND TEDS IN PLACE. +3 EDEMA IN RLE, +2 IN LLE. LUNGS CLEAR, HR REGULAR, BS ACTIVE. PATIENT STATES SHE HAD MULTIPLE BMS TODAY. PAIN MOSTLY LOCATED IN HER R GROIN. ADMINISTERED PAIN MEDS PER MAY. DRESSING C/D/I. ICE IN PLACE ON R HIP. PATIENT DENIES NEEDS. CALL LIGHT IN REACH.
--- NOTE | 2017-04-15 21:54 | NUR ---
HELPED PT TO THE BATHROOM AND THEN TO BED WITH HER FWW. PUT SCDS ON , HOOKED UP CRYO CUFF, PLUGGED IN HER HEARING AIDS AND PHONE. BEDSIDE TABLE AND CALL LIGHT WITHIN REACH.
--- NOTE | 2017-04-15 23:08 | NUR ---
PATIENT SLEEPING IN BED. SCDS IN PLACE. CALL LIGHT IN REACH.
--- NOTE | 2017-04-16 00:13 | NUR ---
PATIENT SLEEPING, EVIDENCE BY SNORING. SCDS IN PLACE. LEGS ARE ELEVATED. CALL LIGHT IN REACH.
--- NOTE | 2017-04-16 01:12 | NUR ---
PATIENT SLEEPING. SCDS IN PLACE. CALL LIGHT IN REACH.
--- NOTE | 2017-04-16 02:04 | NUR ---
HELPED PT TO THE BATHROOM WITH HER FWW. PER PT REQUEST INFORMED HER RN KATJA THAT SHE WOULD LIKE A PAIN PILL. PT SAID SHE WOULD RING HER BROOKS WHEN SHE IS READY TO GO BACK TO BED.
--- NOTE | 2017-04-16 02:18 | NUR ---
PATIENT STATES SHE FEELS NAUSEOUS. ZOFRAN ADMINISTERED. SUPPLIED PATIENT WITH SALTINE CRACKERS. REFILLED WATER PITCHER. PATIENT DENIES FURTHER NEEDS.
--- NOTE | 2017-04-16 04:47 | NUR ---
HELPED PT GET TO HER CHAIR WITH HER FWW. HOOKED UP CRYO, GOT HEARING AIDS FOR HER. BEDSIDE TABLE AND CALL LIGHT WITHIN REACH.
--- NOTE | 2017-04-16 05:24 | NUR ---
ASSISTED PATIENT TO BATHROOM. VOIDED, BACK TO CHAIR. LEGS ELEVATED ON 2 PILLOWS. REPOSITIONED [place]. CRYO CUFF IN PLACE ON R HIP. DRESSING C/D/I. NO C/O PAIN. PATIENT DENIES NEEDS AT THIS TIME. CALL LIGHT IN REACH.
--- NOTE | 2017-04-16 06:28 | NUR ---
PATIENT SLEPT MOST OF THE NIGHT. UP TO THE BATHROOM MULTIPLE TIMES. PATIENT COMPLETELY INDEPENDENT. THE ONLY ACTIVITY I HELPED HER WITH WAS ELEVATING HER RLE ON PILLOWS. NAUSEA LAST NIGHT AFTER PAIN MED ADMINISTERED. SALTINE CRACKERS WITH NORCO. NAUSEA RESOLVED WITH ZOFRAN.
--- NOTE | 2017-04-16 07:10 | NUR ---
PT SITTING UP IN RECLINER. IS ALERT. RECIEVED REPORT IN ROOM FROM LORE HIGHTOWER. PT HAS LEGS DOWN, ASKED IF PT WOULD ELEVATE LEGS DUE TO EDEMA, PT REFUSED AT THIS TIME.
--- NOTE | 2017-04-16 09:05 | NUR ---
PT REQUESTED I COME AND SPEAK WITH HER IN HER ROOM. I WENT AND PT AND I DISCUSSED WHAT SHE WANTED TO TALK ABOUT. SHE STATED THAT SHE FEELS SHE IS READY TO BE DC HOME WITH HOME HEALTH PT. SHE STATES HER BROTHER WILL COME SOON SHE IS DC'D AND SHE WILL STAY WITH HER DAUGHTER UNTIL HE GETS THERE-ABOUT 3 TO 4 HOURS. SHE STATES THEY HAVE EVERYTHING READY AT HOME FOR HER TO GO THERE. PT STATES HAVING HOME HEALTH COME INTO HER HOME FOR THERAPY FOR A WHILE WOULD BE NICE. TOLD HER I WOULD GET A MESSAGE TO DR GE FOR HER.
--- NOTE | 2017-04-16 11:26 | NUR ---
DR. GE IN TO SEE PT. DISCUSSED PLAN FOR DISCHARGE TO HOME TODAY. PT VERBALIZED UNDERSTANDING. STATED THAT SHE IS GOING TO CALL HER BROTHER, WHO IS COMING TO ASSIST HER AT HOME.
[2017-04-16] MEDS ORDERED: HYDROCODON-ACE1 EA11 PO (11:32)
[2017-04-16] MEDS ORDERED: XARELTO10 MG PO (11:32)
[2017-04-16] MEDS ORDERED: DOCUSATE SODIU250 MG PO (11:33)
[2017-04-16] MEDS ORDERED: MIRALAX17 GM PO (11:33)
--- NOTE | 2017-04-16 12:24 | NUR ---
PT SITTING UP IN RECLINER, EATING LUNCH. DENIED NEEDS.
--- NOTE | 2017-04-16 12:48 | NUR ---
GAVE PT DISCHARGE INSTRUCTIONS. QUESTIONS ASKED AND ANSWERED, PT VERBALIZED UNDERSTANDING.
--- NOTE | 2017-04-16 13:43 | NUR ---
VISITED WITH PT'S DAUGHTER. MENTIONED TO HER THAT PT SAID SOMEONE WAS GOING TO BUILD A RAMP FOR HER. SHE SAID THAT IS NOT FEASIBLE WITH THE WAY HER HOUSE IS BUILT. SHE CHECKED ADA REQUIREMENTS, AND FELT PT COULD GET INTO HOME FINE, AND USE EXISTING HAND RAILS. PT HAS [employer], BUT WON'T WEAR IT. I TOLD HER WE STAFF WILL ENCOURAGED HER TO WEAR. SHE SEEMED RELIEVED-APPARENTLY A SORE SUBJECT. PT UP AND WALKING, GAVE ENCOURAGEMENT
--- NOTE | 2017-04-17 15:35 | NUR ---
FAXED CHART NOTES TO INCLUDE FACESHEET, H AND P, PROG NOTE, DC SUMMARY, PT EVAL AND NOTES TO HOME HEALTH. CALLED AND SPOKE WITH MINE FROM HOME HEALTH. RECIEVED A FAX CONFIRMATION.
--- NOTE | 2017-04-20 15:25 | NUR ---
RECEIVED A MESSAGE FROM PATIENT ASKING ABOUT HOME HEALTH VISIT. SHE STATED SHE HADN'T HEARD FROM THEM SINCE BEING HOME. CALLED HOME HEALTH OFFICE, SPOKE WITH [facility] TECHNICIAN. SHE WAS UNABLE TO FIND REFERRAL FOR SERVICES. FAXING CLINICALS, ORDER TO HOME HEALTH DEPARTMENT. FAX CONFIRMATION RECEIVED. CALLED AND SPOKE WITH [facility]. THEY RECEIVED FAX. CALLED DR GE AND INFORMED HIM OF LATE ORDER SENT AND PATIENT WILL BE SEEN EARLY NEXT WEEK. HE IS AWARE. CALLED PATIENT AT HOME. DISCUSSED THAT SHE WILL BE HEARING FROM HOME HEALTH DEPARTMENT SUNDAY AND THAT PT SHOULD BE THERE SUNDAY OR SUNDAY. SHE STATES UNDERSTANDING. PATIENT STATES SHE IS DOING OK. PAIN CONTROLLED WITH PAIN MEDS ORDERED. STATES SHE IS DOING FINE GETTING UP TO BATHROOM AND AROUND HOME ON OWN AND HELP WITH FAMILY. SHE HAS FAMILY DOING CHORES AND SHOPPING FOR HER. SHE HAS NO OTHER CONCERNS.
== END 2017-04-16 14:10 | disposition home or self-care (01) | DRG 561 ==
LOC: MS 08:30
PROVIDERS: ADMIT Specialist
DX: Z47.89 Encounter for other orthopedic aftercare (principal); S72.141D Displaced intertrochanteric fracture of right femur, subsequent encounter for closed fracture with routine healing; W19.XXXD Unspecified fall, subsequent encounter; I10 Essential (primary) hypertension; R00.1 Bradycardia, unspecified; B18.2 Chronic viral hepatitis C; G47.00 Insomnia, unspecified; R60.0 Localized edema
CPT/HCPCS: 36415; 73560; 80048; 85025; 97110; 97116; 97162; 97165; 97530; 97535; G8978; G8979